=== PATIENT | female | born 1990 | race Caucasian/White ===

== ENCOUNTER → 2017-07-18 | Outpatient (CLI) | payer BC | END | disposition home or self-care (01) | LOC: C.PAPS 10:44 | PROVIDERS: ATTEND Obstetrics & Gynecology | DX: Z01.419 Encounter for gynecological examination (general) (routine) without abnormal findings (principal) ==

== ENCOUNTER 2023-12-22 02:46 | Observation (INO) ==
--- NOTE | 2023-12-22 03:00 | Emergency Department Note ---
Impression & Plan Abnormal vaginal bleeding, Status post laparoscopy-assisted vaginal hysterectomy, Postoperative vaginal bleeding following genitourinary procedure ED Provider Note CHIEF COMPLAINT: Vaginal bleeding HISTORY OF PRESENTING ILLNESS: This 33-year-old female patient returns to the emergency department for continued vaginal bleeding. The patient had a hysterectomy on 11/30/2023 without any problems or concerns. However, earlier this evening the patient started with multiple episodes of a large gush of blood. The patient was seen in the emergency department and [employer] presented to the bedside and used Monsel solution to stop the bleeding and the vaginal canal was packed with 2 sponges soaked in Monsel solution. The patient was discharged home, but developed continued significant bleeding and return to the emergency department. No new or changing symptoms, but the bleeding continues to be heavy. REVIEW OF SYSTEMS: See HPI for pertinent positives and pertinent negatives. ALLERGIES: NKDA MEDICATIONS: Levothyroxine, Trazodone, Rizatriptan prn PAST MEDICAL HISTORY: Hypothyroidism, Sleep disturbance, Migraines. Hysterectomy, CCY, appendectomy, tubal ligation. PHYSICAL EXAM: VITALS: Vitals are noted on the nurse's note and reviewed by myself. GENERAL: Non toxic, no acute distress, non-diaphoretic. SKIN: The patient is slightly paler in complexion compared to her last visit. Capillary refill <2 sec. EYES: PERRLA. EOMI. Conjunctivae without injection, sclerae without icterus. NOSE: Patent without discharge. MOUTH: Mucous membranes moist. Uvula midline. Airway patent. NECK: Supple without nuchal rigidity. HEART: Regular rate and rhythm without murmurs gallops or rubs. LUNGS: Clear to auscultation bilaterally without wheezes, rales or rhonchi. No retractions or accessory muscle use. ABDOMEN: Positive bowel sounds x 4. Normal tympanic percussion. Soft, nontender. No masses or organomegaly. Horn sign negative. No guarding or rebound tenderness. No focal RLQ or LLQ tenderness. PELVIC: Permission to perform the exam. Nurse present for the exam. Only external exam performed due to the packing in place. The patient does have continued oozing of bright red blood as well as some blood clots that are coming out around the packing. However, no hemorrhaging at this time. NEURO: Patient was alert and oriented. No focal neurological deficits. DIFFERENTIAL DIAGNOSIS: Differential diagnosis includes hypermenorrhea, polymenorrhea, , , ectopic , endocrine abnormality, salpingitis, cervicitis, coagulopathy, neoplasm, polyps, ovarian cyst, myoma of uterus, hormonal imbalance, atrophic vaginitis, or others. ED COURSE AND MEDICAL DECISION MAKING: MEDICATIONS GIVEN: 1 L normal saline solution bolus. 1000 mg of TXA IV. MONITOR: Continuous ekg monitor: Order was placed for continuous ekg monitor. Patient was placed on the ekg monitor and continuous pulse ox. Patient was noted to be in normal sinus rhythm at an initial rate of 90 bpm per my interpretation. INTERPRETATION OF LABS: I interpreted the labs with full lab results as below in the lab section of this note. Pertinent lab results discussed in the MDM section below. INTERPRETATION OF IMAGING: Imaging studies were interpreted by myself and read by radiology as per the imaging section of this note. CT scan of the abdomen pelvis with IV contrast showed surgical changes consistent with a hysterectomy. There is complex fluid/blood distending the vaginal cavity. There is small gas foci within the vaginal canal. Nonspecific hyperdense material within the vaginal canal. Punctate nonobstructing left renal stone. No hydronephrosis or obstructing ureteral stone. I spoke with Dr. Ramírez of radiology through [facility] at Dr. Fields's request to confirm that the bleeding was all vaginal and that there was no intra-abdominal bleeding. Dr. Ramírez confirm that there was no intra-abdominal bleeding. CONSULTATIONS: Dr. Fields of [employer]. Dr. Ramírez of radiology through [facility] MDM SUMMARY: I examined the patient. The patient had recently been discharged from the ER for vaginal bleeding after her hysterectomy on 11/30/2023. The patient had Monsel's Solution placed on the area of bleeding and her vaginal canal was packed by Dr. Fields of [employer] [employer]. However, she went home and states that she had continued significant bleeding. I spoke with Dr. Fields of [employer] who recommended repeat CBC and coags as well as IV TXA. She also recommended a CT scan of the abdomen pelvis with IV contrast to evaluate the source of bleeding. An IV lock was placed and labs were drawn. The patient was given 1 L normal saline solution bolus. She was given 1000 mg of TXA IV. She declined any medication for pain while in the emergency department. The patient's white blood cell count slightly increased to 13.8. Her hemoglobin decreased from 12.6-10.8. Hematocrit dropped from 39-32.6. This was prior to any IV fluids. Platelet count was normal at 295. Coagulation studies remained normal. Repeat BMP without significant abnormalities and no significant change in her BUN or creatinine. The patient's blood type was a positive with no antibodies. CT scan of the abdomen pelvis with IV contrast showed surgical changes consistent with a hysterectomy. There is complex fluid/blood distending the vaginal cavity. There is small gas foci within the vaginal canal. Nonspecific hyperdense material within the vaginal canal. Punctate nonobstructing left renal stone. No hydronephrosis or obstructing ureteral stone. I spoke with Dr. Ramírez of radiology through [facility] at Dr. Fields's request to confirm that the bleeding was all vaginal and that there was no intra-abdominal bleeding. Dr. Ramírez confirm that there was no intra-abdominal bleeding. Dr. Fields recommended admission for observation of her continued bleeding. She also presented to the emergency department to reapply Monsel's Solution and perform repeat vaginal packing. Please refer to her dictation for further details. The patient was admitted for observation by Dr. Fields. Please refer to the inpatient admission notes for further details. The patient's care was transferred in stable condition. DIAGNOSIS: Abnormal vaginal bleeding status post hysterectomy on 11/30/2023 Past Med/Surg History Problem List (Updated 12/23/23 @ 19:54 by Bessie Gillette PA-C) Postoperative vaginal bleeding following genitourinary procedure (Acute) Status post laparoscopy-assisted vaginal hysterectomy (Acute) Abnormal vaginal bleeding (Acute) Abdominal pain Medical History History of postoperative nausea and vomiting severe Anxiety Hypothyroidism History of COVID-19 (02/2023) no hosp; resolved History of anemia Surgical History Status post wisdom tooth extraction S/P tubal ligation H/O LEEP H/O laparoscopy diagnostic Status post cholecystectomy laparoscopic with cholangiography >> appendix removed at same time Family History Grandfather (Paternal) Stroke Grandmother Hypertension Grandfather (Paternal) Hypertension Social History Smoking Status: Current every day smoker Tobacco Type: Cigarettes Cigarettes Per Day: 7 sticks per day - Patient advised on smoking cessation.; Second Hand Exposure: Yes; Do You Dip or Chew Tobacco: No; Tobacco Cessation Education Requested by Patient: Yes Hx Alcohol Use: No Hx Substance Use: Yes Last Used Substance: Unknown Substance Use Type Other:: Patient has legal card for marijuana. Preferred Language: Belarusian Communication Ability: Effective Header Machine Operator Required: No Beliefs That Will Affect Care: None Current Living Situation: Alone Feels Safe at Home: Yes Safety Concerns: Feels Safe At This Time Assistive Devices: None Allergies Allergies Allergy/AdvReac Type Severity Reaction Status Date / Time No Known Allergies Allergy Verified 11/30/23 08:50 Home Meds Home Medications Medication Instructions Recorded Confirmed levothyroxine 25 mcg tablet 25 mcg PO QAM 07/01/23 12/22/23 rizatriptan 10 mg tablet 10 mg PO DIRECTED PRN Migraine 07/01/23 12/22/23 Headache trazodone 100 mg tablet 100 mg PO HS 07/01/23 12/22/23 Results & Data (ED) Laboratory Data 12/23/23 12:23 12/22/23 04:16 Lab Results 12/22/23 Range/Units 04:16 WBC 13.88 H (4.8-10.8) K/ul RBC 3.65 L (4.20-5.40) M/uL Hgb 10.8 L (12.0-16.0) g/dl Hct 32.6 L (37.0-47.0) % MCV 89.3 (80.0-100.0) fL MCH 29.6 (25.0-34.0) pg MCHC 33.1 (32.0-36.0) g/dL RDW Std Deviation 41.2 (36.4-46.3) fL RDW Coeff of Ray 12.7 (11.5-14.5) % Plt Count 295 (130-400) K/uL MPV 10.5 (9.4-12.4) fL Immature Gran % (Auto) 0.4 % Neut % (Auto) 75.3 % Lymph % (Auto) 16.9 % [place] % (Auto) 5.7 % Eos % (Auto) 1.4 % Baso % (Auto) 0.3 % Neut # (Auto) 10.45 H (1.40-6.50) K/uL Lymph # (Auto) 2.35 (1.20-3.40) K/uL [place] # (Auto) 0.79 H (0.11-0.59) K/uL Eos # (Auto) 0.20 (0.00-0.50) K/uL Baso # (Auto) 0.04 (0.00-0.20) K/uL Immature Gran # (Auto) 0.05 (0.01-0.20) K/uL PT 10.2 (9.0-12.0) Seconds INR 0.9 (0.9-1.1) APTT 25 (21-31) Seconds PTT Ratio 0.9 Sodium 139 (136-145) mmol/L Potassium 3.8 (3.5-5.1) mmol/L Chloride 111 H (98-107) mmol/L Carbon Dioxide 21 (21-32) mmol/L Anion Gap 7 (3-11) BUN 11 (6-23) mg/dl Creatinine 0.71 (0.6-1.2) mg/dl Est Cr Clr Drug Dosing Not Reportable eGFR 115.06 BUN/Creatinine Ratio 15.5 (10-20) Glucose 83 (70-99(Fasting)) mg/dl Calcium 8.5 L (8.6-10.3) mg/dl Administered Medications Discontinued Medications Acetaminophen (Acetaminophen 325 Mg Tab) 650 mg PO Q4H PRN PRN Reason: Pain or Fever Stop: 01/21/24 07:18 Last Admin: 12/22/23 19:29 Dose: 650 mg Documented By: HLB Co-signed By: SRF Ferric Subsulfate (Ferric Subsulfate 8 Ml Vial) 8 ml TOP NOW STA Stop: 12/22/23 05:07 Last Admin: 12/22/23 07:53 Dose: 8 ml Documented By: JACINTA Sodium Chloride (Nss) 1,000 mls @ 999 mls/hr IV .Q1H1M STA Stop: 12/22/23 04:07 Last Infusion: 12/22/23 05:07 Dose: Infused Documented By: Admin: 12/22/23 03:58 Dose: 999 mls/hr Documented By: TERRY Tranexamic Acid (Tranexamic Acid / 0.7% Nacl) 1,000 mg in 100 mls @ 600 mls/hr IV NOW STA Stop: 12/22/23 03:19 Last Infusion: 12/22/23 04:06 Dose: Infused Documented By: Admin: 12/22/23 03:56 Dose: 600 mls/hr Documented By: TERRY Ioversol (Optiray 320 100ml) 94 ml IV ONCE ONE Stop: 12/22/23 03:51 Last Admin: 12/22/23 03:47 Dose: 94 ml Documented By: URI Levothyroxine Sodium (Levothyroxine Sodium 25 Mcg Tablet) 25 mcg PO DAILYBB VENECIA Stop: 01/21/24 09:59 Last Admin: 12/23/23 06:32 Dose: 25 mcg Documented By: Admin: 12/22/23 10:54 Dose: 25 mcg Documented By: DEISY Trazodone HCl (Trazodone Hcl 100 Mg Tab) 100 mg PO HS VENECIA Stop: 01/21/24 20:59 Last Admin: 12/22/23 22:12 Dose: 100 mg Documented By: GAEL Discharge Plan Visit Data Chief Complaint: Vaginal Bleeding Stated Complaint: VAG BLEED EXTREME ED Provider: Vanessa Dickerson ED Midlevel Provider: Bessie Gillette Discharge Problem: Abnormal vaginal bleeding, Status post laparoscopy-assisted vaginal hysterectomy, Postoperative vaginal bleeding following genitourinary procedure Patient Disposition: Admitted As Inpatient Condition: Good Discharge Instructions Interventions: ED Discharge Assessment Last Done: 12/22/23 09:30
[2023-12-22] MEDS: OPTIRAY 320 100ml IV ONE (03:47)
[2023-12-22] MEDS: TRANEXAMIC ACID / 0.7% NACL 1,000 MG/100 ML BAG IV STA (03:56)
[2023-12-22] MEDS: SODIUM CHLORIDE 0.9% 1,000 ML IV STA (03:58)
--- NOTE | 2023-12-22 04:17 | CT Scan Report ---
Exam(s): CT ABDOMEN + PELVIS With Contrast IV Amt: 94 ml EXAM: CT Abdomen and Pelvis With Intravenous Contrast CLINICAL HISTORY: Reason for exam: Vaginal bleeding, abdominal pain, recent hysterect. TECHNIQUE: Axial computed tomography images of the abdomen and pelvis with intravenous contrast. CTDI is 25.14 mGy and DLP is 1302.27 mGy-cm. Automated exposure control was utilized for the study. A dose lowering technique was utilized adhering to the principles of ALARA. CONTRAST: Patient received 94 ml of IV contrast COMPARISON: CT abdomen/pelvis on 08/16/2017 FINDINGS: Lung bases: Unremarkable. No mass. No consolidation. ABDOMEN: Liver: Unremarkable. No mass. Gallbladder and bile ducts: Prior cholecystectomy. No ductal dilation. Pancreas: Unremarkable. No mass. No ductal dilation. Spleen: Small splenule. Adrenals: Unremarkable. No mass. Kidneys and ureters: Punctate nonobstructing left renal stone. No hydronephrosis or obstructing ureteral stone. Small hypodensity in the right kidney is too small to definitively characterize. Stomach and bowel: Diverticulosis without evidence of diverticulitis. No small bowel obstruction. PELVIS: Appendix: Prior appendectomy. Bladder: Unremarkable. No mass. Reproductive: Hysterectomy. Complex fluid/blood distending the vaginal cavity. Small gas foci within the vaginal cavity. Nonspecific hyperdense material within the vaginal cavity. Please correlate clinically. ABDOMEN and PELVIS: Intraperitoneal space: Unremarkable. No free air. No significant fluid collection. Bones/joints: No acute fracture. No dislocation. Soft tissues: Small fat-containing periumbilical hernia. Vasculature: Unremarkable. No abdominal aortic aneurysm. Lymph nodes: Unremarkable. No enlarged lymph nodes. IMPRESSION: 1. Hysterectomy. Complex fluid/blood distending the vaginal cavity. Small gas foci within the vaginal cavity. Nonspecific hyperdense material within the vaginal cavity. Please correlate clinically. 2. Punctate nonobstructing left renal stone. No hydronephrosis or obstructing ureteral stone. Electronically signed by: Nemo Ramírez M.D. 12/22/23 04:16 AM
[2023-12-22 04:32] LABS: Basophils # (auto) 0.04 K/uL (0.00-0.20); Basophils % (auto) 0.3 %; Eosinophils % (auto) 1.4 %; Hematocrit (blood only) 32.6 % (37.0-47.0); Hemoglobin 10.8 g/dl (12.0-16.0); Immature Granulocytes # (auto) 0.05 K/uL (0.01-0.20); Immature Granulocytes % (auto) 0.4 %; Lymphocytes # (auto) 2.35 K/uL (1.20-3.40); Lymphocytes % (auto) 16.9 %; Mean Corpuscular Hemoglobin 29.6 pg (25.0-34.0); Mean Corpuscular Hgb Conc 33.1 g/dL (32.0-36.0); Mean Corpuscular Volume 89.3 fL (80.0-100.0); Mean Platelet Volume 10.5 fL (9.4-12.4); Monocytes # (auto) 0.79 K/uL (0.11-0.59); Monocytes % (auto) 5.7 %; Neutrophils # (auto) 10.45 K/uL (1.40-6.50); Neutrophils % (auto) 75.3 %; Platelet Count 295 K/uL (130-400); RDW Coefficient of Variation 12.7 % (11.5-14.5); RDW Standard Deviation 41.2 fL (36.4-46.3); Red Blood Count 3.65 M/uL (4.20-5.40); White Blood Count 13.88 K/ul (4.8-10.8)
[2023-12-22 04:47] LABS: Anion Gap 7 (3-11); Calcium 8.5 mg/dl (8.6-10.3); Carbon Dioxide 21 mmol/L (21-32); Chloride 111 mmol/L (98-107); Potassium 3.8 mmol/L (3.5-5.1); Sodium 139 mmol/L (136-145)
[2023-12-22 04:53] LABS: BUN Creatinine Ratio 15.5 (10-20); Blood Urea Nitrogen 11 mg/dl (6-23); Glucose 83 mg/dl (70-99(Fasting))
[2023-12-22 05:14] LABS: INR 0.9 (0.9-1.1); Partial Thromboplastin Ratio 0.9; Partial Thromboplastin Time 25 Seconds (21-31); Prothrombin Time 10.2 Seconds (9.0-12.0)
[2023-12-22] MEDS ORDERED: POLYETHYLENE (MIRALAX) 17 GM PACK PO PRN (07:19)
--- NOTE | 2023-12-22 07:42 | Gynecologic Progress Note ---
Date of Service December 22, 2023 Subjective Patient came back bleeding thorough 2 sponges placed earlier H&H stable CT is negative for fluid in pelvis All seen in vagina VSS Afebrile Patient denies pain VE; the sponges were removed. It was completely soaked with blood. Speculum exam showed small dark cloths in upper vagina, cleaned, cuff looks intact. Applied Monsels solution, packed with vaginal packing Smith catheter is placed to drain bladder Patient to be takne to [facility] floor for observation today Repeat CBC Continue to monitor closely Results & Data Vital Signs (Past 12 Hours) Vital Signs Resp BP Pulse Ox O2 Del Method 12/22/23 04:00 18 135/83 99 Room Air
[2023-12-22] MEDS ORDERED: oxyCODONE HCL IR 5 MG TAB (IMMEDIATE RELEASE) PO PRN (07:43)
[2023-12-22] MEDS: FERRIC SUBSULFATE 8 ML VIAL TOP STA (07:53)
[2023-12-22 09:16] LABS: Basophils # (auto) 0.03 K/uL (0.00-0.20); Basophils % (auto) 0.2 %; Eosinophils # (auto) 0.23 K/uL (0.00-0.50); Eosinophils % (auto) 1.8 %; Hematocrit (blood only) 30.9 % (37.0-47.0); Hemoglobin 9.8 g/dl (12.0-16.0); Immature Granulocytes # (auto) 0.04 K/uL (0.01-0.20); Immature Granulocytes % (auto) 0.3 %; Lymphocytes # (auto) 2.85 K/uL (1.20-3.40); Lymphocytes % (auto) 22.3 %; Mean Corpuscular Hemoglobin 29.3 pg (25.0-34.0); Mean Corpuscular Hgb Conc 31.7 g/dL (32.0-36.0); Mean Corpuscular Volume 92.2 fL (80.0-100.0); Mean Platelet Volume 10.3 fL (9.4-12.4); Monocytes # (auto) 0.76 K/uL (0.11-0.59); Monocytes % (auto) 5.9 %; Neutrophils # (auto) 8.89 K/uL (1.40-6.50); Neutrophils % (auto) 69.5 %; Platelet Count 339 K/uL (130-400); RDW Standard Deviation 42.9 fL (36.4-46.3); Red Blood Count 3.35 M/uL (4.20-5.40)
[2023-12-22] MEDS ORDERED: RIZATRIPTAN BENZOATE 10 MG TAB PO PRN (09:49)
[2023-12-22] MEDS: LEVOTHYROXINE SODIUM 25 MCG TABLET PO SCH (10:54)
[2023-12-22] MEDS: ACETAMINOPHEN 325 MG TAB PO PRN (19:29)
[2023-12-22] MEDS: traZODone HCL 100 MG TAB PO SCH (22:12)
--- NOTE | 2023-12-23 12:10 | Obstetrical Progress Note ---
Date of Service December 23, 2023 Assessment & Plan Admission and Anticipated Discharge Date Admission Date: December 22, 2023 Subjective vaginal packing removed no active bleeding noted hg 9.8 Results & Data Vital Signs (Past 12 Hours) Vital Signs Temp Pulse Pulse Resp BP Pulse Ox O2 Del Method 12/23/23 09:20 36.8 C 88 18 111/66 98 Room Air 12/23/23 03:12 36.7 C 82 18 95/65 L 98 Room Air
[2023-12-23 12:54] LABS: Hematocrit (blood only) 34.9 % (37.0-47.0); Hemoglobin 11.5 g/dl (12.0-16.0)
== END 2023-12-23 14:00 | disposition home or self-care (01) ==
LOC: ED 02:46 → 4E1 02:46
DX: N93.9 Abnormal uterine and vaginal bleeding, unspecified

== ENCOUNTER 2023-12-29 14:02 | Inpatient (IN) ==
--- OUTSIDE RECORDS SUMMARY | 2023-12-29 14:06 | External Medical Summary | Summary of Care ---
Author Name Unknown Organization [facility] Address [address] [facility] [facility] [place] [address] Phone [phone] Care Team Providers Care Datastage Architect Name Role Phone Louis Hoang MD Primary Care Provide r Reason for Visit * Reason Comments General Engineer Return Encounter Details Date Type Department Care Team (Latest Contact Info) Description 12/28/2023 12:15 PM EDT Office Visit Gynecology/Obstetric jj Wagnerana Maes [address] [place] [id number] Dov Le MD [address] [place] [phone] Postoperative vaginal bleeding following genitourinary procedure* Allergies No known active allergiesdocumented as of this encounter (statuses as of 12/28/2023) Medications Medication Sig Dispensed Refills Start Date End Date Status traZODone HCl 100 MG Oral Tablet (Desyrel)Indicati ons:ANTONINA (generalized anxiety disorder) One tablet at bedtime 30 Tablet 5 05/03/2023 Active Levothyroxine Sodium 25 MCG Oral Tablet (Levoxyl)Indicati ons:Hypothyroidis m, unspecified type Take 1 Tablet by mouth in the morning. (at least 30 min prior to breakfast or other meds). 30 Tablet 11 06/26/2023 Active Rizatriptan Benzoate 10 MG Oral Tablet DisintegratingInd ications:Migraine with aura and without status migrainosus, not intractable DISSOLVE 1 TABLET UNDER THE TONGUE NEEDED FOR MIGRAINE, MAY REPEAT IN TWO HOURS if NEEDED 10 Tablet 1 12/05/2023 Active Propranolol HCl ER 80 MG Oral Capsule Extended Release 24 Hour (Inderal LA)Indications:In tractable migraine with aura without status migrainosus Take 1 Capsule by mouth in the morning. 30 Capsule 5 05/03/2023 12/28/2023 Discontinue d(Medicatio n List Clean Up) Ibuprofen 600 MG Oral Tablet (Motrin) Take 1 Tablet by mouth every 6 hours as needed (pain). With food. 30 Tablet 1 11/07/2023 12/28/2023 Discontinue d(Medicatio n List Clean Up) Acetaminophen 325 MG Oral Tablet (Tylenol) Take 2 Tablets by mouth every 6 hours as needed for Pain, Moderate. 30 Tablet 1 11/07/2023 12/28/2023 Discontinue d(Medicatio n List Clean Up) Docusate Sodium 100 MG Oral Capsule (Colace) Take 1 Capsule by mouth in the morning and 1 Capsule before bedtime. 60 Capsule 1 11/07/2023 12/28/2023 Discontinue d(Medicatio n List Clean Up) Simethicone 80 MG Oral Tablet Chewable (Mylicon) Take 1 Tablet by mouth every 6 hours as needed for Gas. 30 Tablet 11/07/2023 12/28/2023 Discontinue d(Medicatio n List Clean Up) oxyCODONE-Acetami nophen 5-325 MG Oral Tablet (Percocet) Take 1 Tablet by mouth every 4 hours as needed for Pain, Severe. 10 Tablet 11/07/2023 12/28/2023 Discontinue d(Medicatio n List Clean Up) documented as of this encounter (statuses as of 12/28/2023) Active Problems Problem Noted Date Diagnosed Date Abnormal thyroid function test 06/21/2023 Overview: Component Latest Ref Rng 06/20/2023 TSH 0.27 - 4.20 uIU/mL 5.43 (H) T4, Free 0.9 - 1.7 ng/dL 0.9 Legend: (H) High Keratosis pilaris 02/17/2021 ANTONINA (generalized anxiety disorder) 09/19/2016 Migraine with aura and witho ut status migrainosus, not intractable documented as of this encounter (statuses as of 12/28/2023) Immunizations Name Administration Dates Next Due COVID-19 mRNA, LNP-s, No Pre serve, 2-Dose Series (Pfizer) 01/11/2021,12/21/2020 DTWP - Dipth/Tet/Whole Cell Pertussis 10/29/1991 ,05/15/1991,01/08/1991 DTWP HIB - Dipth/Tet/Whole C ell Pert/HIB 10/31/1996,04/12/1992 H1N1 2009 Influenza, Intranasal 01/18/2009 HIB PRP-T, 4 Dose, PF, IM (H iberix, ActHib) 04/12/1992,10/29/1991,05/15/1991,01/08 HPV Vaccine, 4-Valent 04/10/2007,11/12/2006,09/02 Hepatitis B, 0-19 yrs 07/05/1993,06/28/1992,10/1992 MMR - Measles/Mumps/Rubella Vaccine 10/31/1996,0 04/12/1992 Meningococcal Conjugate Vacc ine (Menactra/Menveo) 04/10/2007 OPV - Polio Virus Vaccine (Oral) 997,04/12/1992,05/15/1991,01/08 Pneumococcal Conjugate Vacci ne, 20-valent ([id number]) 04/19/2022 Pneumococcal Polysaccharide PPV23 (Pneumovax) 04/04/2010 Seasonal Influenza Vac., MDV , IM, 0.5 mL (Fluzone) 04/04/2010,01/13/2008 Seasonal Influenza, PF, 6 M & above, IM , (FluLaval or Fluzone) 05/03/2023,04/19/2022,01/12/2020,02/19,02/07/2018 TDAP, Age 7 and older, IM (Adacel) 08/03/2014, Varicella Vaccine (Chicken Pox) 10/23/2008,07/25 documented as of this encounter Social History Tobacco Use Types Packs/Day Years Used Date Smoking Tobacco: Some Days Cigarettes 0.5 15.1 Started: 2008 Smokeless Tobacco: Never Alcohol Use Standard Drinks/Week Comments No 0 (1 standard drink = 0.6 oz pur e alcohol) PHQ-2 Answer Date Recorded PHQ-2 Score 1 10/27/2019 Hunger Vital Sign Answer Date Recorded Within the past 12 months, y ou worried that your food would run out before you got the money to buy more. Never true 06/19/19 24 Within the past 12 months, t he food you bought just didn't last and you didn't have money to get more. Never true 06/19/2023 Childcare Answer Date Recorded Do you feel overwhelmed with taking care of a child, family member or friend? No 06/19/2023 Does your family need help f inding childcare? (Household - for ages 0-17 years) Not on file 06/19/2023 Clothing Answer Date Recorded Have you been unable to get clothing when it was really needed? No 06/19/2023 Is your family able to get c lothes or diapers when needed? (Household - for ages 0-17 years) Not on file 06/19/2023 Personal Safety Answer Date Recorded Do you feel unsafe or have concerns for your saf ety? No 06/19/2023 Do you have concerns for you r family's safety? (Household - for ages 0-17 years) Not on file 06/19/2023 Utilities Answer Date Recorded Do you have trouble paying y our heating, water, or electric bill? No 06/19/2023 Is your family able to pay t he heat, water, or electric bill? (Household - for ages 0-17 years) Not on file 06/19/2023 Does your family have access to good internet? (Household - for ages 0-17 years) Not on file 06/19/2023 Employment Status Answer Date Recorded Are you unemployed or without regular income? No 06/19/2023 Does the household have a re gular source of income? (Household - for ages 0-17 years) Not on file 06/19/2023 Social Connections Answer Date Recorded How often do you feel lonely or isolated from th ose around you? Never 06/19/2023 Financial Resource Strain Answer Date R ecorded Do you have any trouble payi ng for your medications, or do you think you might in the future? No 06/19/2023 Does your family have troubl e paying for medicine? (Household - for ages 0-17 years) Not on file 06/19/2023 Transportation Needs Answer Date Record ed READ ONLY Do you have troubl e getting a ride to medical visits or work? Never True 06/19/2023 Does your family have a hard time getting a ride to doctors visits? (Household - for ages 0-17 years) Not on file 06/19/2023 Has lack of transportation k ept you from medical appointments, meetings, work, or from getting things needed for daily living? Check all that apply. (Adult - for ages 18 years and over) Not on file 06/19/2023 Do you (or your family) have trouble finding or paying for a ride (transportation)? (Household - for ages 0-17 years) Not on file 06/19/2023 Housing Stability Answer Date Recorded Do you currently live in a s helter or have no steady place to sleep at night? No 06/19/2023 READ ONLY Do you think you a re at risk of becoming homeless? No 06/19/2023 Does your family worry about paying for your home or becoming homeless? (Household - for ages 0-17 years) Not on file 0 06/19/2023 Are you homeless or worried that you might be in the future? (Adult - for ages 18 years and over) Not on file Are you (or your family) jovan eless or worried that you might be in the future? (Household - for ages 0-17 years) Not on file Food Insecurity Answer Date Recorded Do you need food for this week? No 06/19/2023 Are you able to get enough f ood for your family? (Household - for ages 0-17 years) Not on file 06/19/2023 Does your family need food t his week? (Household - for ages 0-17 years) Not on file 06/19/2023 Do you always have enough fo od for your family? (Household - for ages 0-17 years) Not on file 06/19/2023 Sex and Gender Information Value Date Recorded Sex Assigned at Female 06/19/2023 1:45 PM EDT Gender Identity Female 06/19/2023 1:45 PM EDT Sexual Orientation Straight 06/19/2023 1: 45 PM EDT Job Start Date Occupation Industry Not on file Not on file Not on file documented as of this encounter Last Filed Vital Signs Vital Sign Reading Time Taken Comments Blood Pressure 128/74 12/28/2023 12:39 PM EDT Pulse - - Temperature - - Respiratory Rate - - Oxygen Saturation - - Inhaled Oxygen Concentration - - Weight 81.1 kg (178 lb 12.8 oz) 024 12:39 PM EDT Height - - Body Mass Index 28.86 12/19/2023 12:43 PM EDT documented in this encounter Progress Notes * Dov Le MD - 12/28/2023 1:03 PM EDT Subjective Jf Flood is a 33 year old female. Chief Complaint Patient presents with General Engineer Return Patient is seen for postoperative bleeding HPI: Patient is a 2 para 2 underwent laparoscopic hysterectomy 11/30/2023. Was admitted to [facility] for a postoperative bleed 12/22/2023. At that time she underwent treatment of the vaginal cuff with Monsel's solution and vaginal packing. First attempt at controlling the bleeding was unsuccessful. She had a return to the hospital where she underwent Monsel's solution large amount of vaginal packing and an insertion of the Smith catheter. She was observed over night. The following day packing was removed revealing minimal amount of bleeding. Along with a Smith catheter. Hemoglobinwas checked prior to discharge was found to be over 11. She called the day of admission stating she had recurrence of vaginal bleeding which she described as being small amount. Patient was instructed to return to the office to be checked.. PMH: Patient Active Problem List Diagnosis ANTONINA (generalized anxiety disorder) Migraine with aura and without status migrainosus, not intractable Keratosis pilaris Abnormal thyroid function test Current Outpatient Medications Medication Sig Dispense Refill traZODone HCl 100 MG Oral Tablet (Desyrel) One tablet at bedtime 30 Tablet 5 Levothyroxine Sodium 25 MCG Oral Tablet (Levoxyl) Take 1 Tablet by mouth in the morning. (at least 30 min prior to breakfast or other meds). 30 Tablet 11 Rizatriptan Benzoate 10 MG Oral Tablet Disintegrating DISSOLVE 1 TABLET UNDER THE TONGUE NEEDED FOR MIGRAINE, MAY REPEAT IN TWO HOURS if NEEDED 10 Tablet 1 No current facility-administered medications for this visit. Review of patient's allergies indicates: No Known Allergies Objective BP 128/74 | Wt 81.1 kg (178 lb 12.8 oz) | LMP 11/06/2023 | BMI 28.86 kg/m | BSA 1.94 m Patient was well-nourished female alert oriented x3 in no acute distress. Pelvic exam revealed small amount of dark clots emanating from the vaginal cuff. A small area of red tissue on the left side of the cuff. Removed the clots with a ring forceps. And use Monsel's solution on the cuff to control any future bleeding. Should be noted at the time of the exam there was noactive bleeding noted. Breakfast Bar Attendant Lauren ASSESSMENT/PLAN: Patient will return next week There are no diagnoses linked to this encounter. Dov Le MD documented in this encounter Plan of Treatment Upcoming Encounters Date Type Department Care Team (Late st Contact Info) Description 01/01/2024 12:00 PM EDT Office Visit Gynecology/Obstetrics [facility] [address] [place] [id number] Dov Le MD [address] [place] [phone] 02/13/2024 1:45 PM EST Office Visit Gynecology/Obstetrics [facility] [address] [place] [id number] Haylee Stiles MD [address] [place] [id number] Health Maintenance Due Date Last Done Comments Hepatitis C Screening 2008 Depression Screening 10/20/2020 10/21/2019 COVID-19 Vaccine (3 - 2023-2 5 season) 2023 01/11/2021, 12/21/2020 Influenza Vaccine (FLU shot) (#1) 2023 05/03/2023, 04/19/2022, 01/12/2020, Additional history exists DTap/Tdap Vaccines (8 - Td o r Tdap) 08/03/2024 08/03/2014, 04/10/2007, 10/31/1996, Additional history exists TSH 08/06/2024 08/07/2023, 06/03, 10/31/2019, Additional history exists Hepatitis B Vaccine Completed 07/05/1993, 06/28/1992, 04/12/1992 HPV (Gardasil) Vaccine Completed 8, 11/12/2006, 09/13/2006 MENINGOCOCCAL (MENACTRA/MENVEO) Completed 8, 04/10/2007 Pneumococcal Vaccine: Pediat rics (0 to 5 Years) and At-Risk Patients (6 to 64 Years) Completed 04/19/2022, 04/04/2010 Cervical Cancer Screening Discontinued HPV/Co-Test Discontinued 06/20/2023 Pap Smear Discontinued 06/20/2023, 08/04, 07/18/2017 documented as of this encounter Medical Devices Not on filedocumented as of this encounter Visit Diagnoses Diagnosis Postoperative vaginal bleeding following genitourinary procedure- Primary documented in this encounter Care Teams Datastage Architect Relationship Specialty Start Date End Date Louis Hoang MD [address] [place] [address] [place] [id number] PCP - General Family Medicine 05/03/23 documented as of this encounter"
[2023-12-29] MEDS: SODIUM CHLORIDE 0.9% 1,000 ML IV ONE ×2 (15:24→16:35)
[2023-12-29 15:30] LABS: Basophils # (auto) 0.04 K/uL (0.00-0.20); Basophils % (auto) 0.4 %; Eosinophils # (auto) 0.22 K/uL (0.00-0.50); Eosinophils % (auto) 1.9 %; Hematocrit (blood only) 35.1 % (37.0-47.0); Hemoglobin 11.5 g/dl (12.0-16.0); Immature Granulocytes # (auto) 0.03 K/uL (0.01-0.20); Immature Granulocytes % (auto) 0.3 %; Lymphocytes # (auto) 2.45 K/uL (1.20-3.40); Lymphocytes % (auto) 21.7 %; Mean Corpuscular Hemoglobin 30.2 pg (25.0-34.0); Mean Corpuscular Hgb Conc 32.8 g/dL (32.0-36.0); Mean Corpuscular Volume 92.1 fL (80.0-100.0); Mean Platelet Volume 10.1 fL (9.4-12.4); Monocytes # (auto) 0.62 K/uL (0.11-0.59); Monocytes % (auto) 5.5 %; Neutrophils # (auto) 7.95 K/uL (1.40-6.50); Neutrophils % (auto) 70.2 %; Platelet Count 459 K/uL (130-400); RDW Coefficient of Variation 13.5 % (11.5-14.5); RDW Standard Deviation 44.7 fL (36.4-46.3); Red Blood Count 3.81 M/uL (4.20-5.40); White Blood Count 11.31 K/ul (4.8-10.8)
[2023-12-29 15:42] LABS: Albumin Globulin Ratio 1.5 (0.9-2); Albumin Level 4.8 gm/dl (3.4-5.0); BUN Creatinine Ratio 14.6 (10-20); Bilirubin,Total 0.3 mg/dl (0.2-1.0); Calcium 9.6 mg/dl (8.6-10.3); Creatinine Clr Calc Pharmacy 104.1 ml/min; Globulin 3.2 gm/dl (2.5-4.0); Potassium 3.9 mmol/L (3.5-5.1)
[2023-12-29 15:46] LABS: INR 0.9 (0.9-1.1); Prothrombin Time 10.3 Seconds (9.0-12.0)
[2023-12-29 15:57] LABS: Thyroid Stimulating Hormone 7.106 uIu/ml (0.300-4.500)
--- NOTE | 2023-12-29 16:02 | Emergency Department Note ---
Impression & Plan Abnormal vaginal bleeding, Status post laparoscopy-assisted vaginal hysterectomy, Hypotension ED Provider Note ED Provider Note NAME: FELTON BAILEY AGE:33 SEX: Female : 1990 ARRIVES VIA: Private vehicle INFORMANT: Patient ED PROVIDER(s): Thu Ramos DO CHIEF COMPLAINT: Vaginal bleeding HPI: This is a 33-year-old female who presents emergency department due to concern for vaginal bleeding. Patient is status post laparoscopic hysterectomy the end of November. She developed some vaginal bleeding last weekend and was seen and evaluated in the ER and underwent packing and placement of a Smith. She followed up in the office and the Smith was removed and the bleeding seemed to have subsided. Yesterday she began to have bleeding again and went back to the [employer] CH[employer] DEVELOP[employer]NAGER office and had more packing placed and was scheduled to follow-up on Sunday however today she began to suddenly bleed heavily again with passage of golf ball sized clots. She does have a sense of abdominal pressure and fatigue. She denies chest pain or shortness of breath, fevers or chills, nausea or vomiting. By time of arrival here, patient felt as though she was passing a large clot again. She was noted to be tachycardic and hypotensive on my initial exam. PAST MEDICAL HISTORY:See Below PAST SURGICAL HISTORY:See Below FAMILY HISTORY:See Below SOCIAL HISTORY:See Below HOME MEDICATIONS:See Below ALLERGIES:See Below VITALS:See Below PHYSICAL EXAMINATION: GENERAL: alert, well appearing, well nourished, no distress, non-toxic EYE EXAM: normal conjunctiva, PERRL and EOM's grossly intact OROPHARYNX: no exudate, no erythema, lips, buccal mucosa, and tongue normal and mucous membranes are moist NECK: supple, no nuchal rigidity, no adenopathy, non-tender LUNGS: Clear to auscultation. Normal chest wall mechanics, no w/r/r HEART: no murmurs, S1 normal and S2 normal ABDOMEN: abdomen soft, non-tender, normo-active bowel sounds, no masses, no rebound or guarding. : Normal external genitalia, large clot approximately the size of a fist noted exiting the vaginal vault, slow bright red bleeding noted surrounding this SKIN: no rashes, petechiae, orbruising, pallor noted UPPER EXTREMITIES: upper extremities are grossly normal. FROM, nml pulses b/l. LOWER EXTREMITIES: No pitting edema. FROM, nml pulses b/l. NEURO EXAM: Normal sensorium, cranial nerves II-XII grossly intact, normal speech, no facial droop,nogross weakness of arms, no gross weakness of legs. Gross sensation intact. No ataxia. Vital Signs: reviewed and remarkable Differential Diagnosis: Postop complication, postop infection, vaginal cuff bleeding, ruptured vaginal cuff, trauma, coagulopathy, as well as others were considered MEDICAL DECISION MAKING: This is a 33-year-old female who presents emerged department due to concern for recurrent vaginal bleeding. Patient with recent bleeding 1 month postop from a hysterectomy. She does not use any antiplatelet or anticoagulation medication. She has no known bleeding dyscrasia. Patient noted to have seen SUPPLY CH[employer] DEVELOPMENT MANAGER recently and did undergo treatment with Monsel's and vaginal packing. Patient noted to be hypotensive on arrival here. Labs drawn and sent, IV established, patient monitored on telemetry. She was given 1L IVF. During my exam a large clot noted to be exiting the vagina, and immediately contacted [employer] CH[employer] DEVELOPMENT MANAGER on-call upon exiting the room. A repeat [id number] BMP was added to recheck the H&H after passage of this large clot. Patient then became unresponsive, hypotensive, and tachycardic when nursing staff tried to briefly set her up to reposition her. I was urgently called to the room where she was unresponsive with systolic blood pressure in the 50s, still having ongoing passage of large clots in vaginal bleeding. Dr. Fields was at bedside and began making plans to take the patient to the operating room. Patient's blood pressure improved with additional IV fluids and blood pressure began to be improved. Repeat POC BMP added and revealed a Hgb 5. Packed red cells were obtained and transfusion started at bedside. Patient regained consciousness, blood pressure improved, and she was able to sign blood consent. First unit of blood was transfused and a second unit called for as patient still mildly hypotensive with systolics in the 90s. No further episodes of syncope or decreased responsiveness. Patient remained afebrile. She continued passing clots at bedside and was taken by SUP[employer] CH[employer] DEVELOPMENT MANAGER to the OR. Consultation(s): 1615: Dr. Fields at bedside evaluating the patient. I performed a bedside FAST exam with her in the room to view the abdomen for any free fluid. ER Treatment Provided: See below 1632: I was called urgently to the patient's room as she became hypotensive and unresponsive. A second bag of IV fluids started and a second IV started. We did mix up push dose pressors at bedside however patient's blood pressure improved and she regained consciousness. We did not have to use this. Plan right now per Dr. Fields to take the patient to the operating room. Patient previously had a type and screen, I did ask the charge nurse to call the blood bank to send blood up. Patient did sign the blood consent upon improved mentation and verbalized understanding. 1650: Repeat hemoglobin dropped to 5. One unit of PRBCs being transfused currently. SUP[employer] CH[employer] DEVELOPMENT MANAGER at bedside. Blood pressure improved following a second liter of IV fluids. Consent form signed at bedside. Second unit called for. SUP[employer] CH[employer] DEVELOPMENT MANAGER states their plan is to take her to the operating room. 1708: Patient finished first unit of packed red cells, second unit at bedside to be hung. Blood pressure and heart rate improved. Diagnostics Interpreted By Me: -Cardiac Monitoring: An order was placed for continuous cardiac monitoring. The monitor shows a rate of 118 with sinus tachycardia rhythm. -Laboratory studies: As stated above and show below. Triage Nursing Note Reviewed Prior/Outside Records Reviewed Critical Care: Critical care of 62 min performed to assess and manage high likelihood of life-threatening hypotension, involving labs and imaging performed with assessment to evaluate abnormal vaginal bleeding diagnosis with frequent reassessment. This time includes bedside time, treatment discussions with patient/family/consultants, documentation time and excludes procedure time. Past Med/Surg History Problem List (Updated 12/29/23 @ 22:07 by Thu Ramos DO) Hypotension (Acute) Acute hemorrhage Postoperative vaginal bleeding following genitourinary procedure (Acute) Status post laparoscopy-assisted vaginal hysterectomy (Acute) Abnormal vaginal bleeding (Acute) Abdominal pain Medical History History of postoperative nausea and vomiting severe Anxiety Hypothyroidism History of COVID-19 (02/2023) no hosp; resolved History of anemia Surgical History Status post wisdom tooth extraction S/P tubal ligation H/O LEEP H/O laparoscopy diagnostic Status post cholecystectomy laparoscopic with cholangiography >> appendix removed at same time Family History Grandfather (Paternal) Stroke Grandmother Hypertension Grandfather (Paternal) Hypertension Social History Smoking Status: Current every day smoker Tobacco Type: Cigarettes Cigarettes Per Day: 6 for 13 years; Second Hand Exposure: Yes; Do You Dip or Chew Tobacco: No; Hx Alcohol Use: No Hx Substance Use: No Preferred Language: [place] Communication Ability: Effective [employer] Required: No Beliefs That Will Affect Care: None Current Living Situation: Significant Other Feels Safe at Home: Yes Safety Concerns: Feels Safe At This Time Assistive Devices: None Allergies Allergies Allergy/AdvReac Type Severity Reaction Status Date / Time No Known Allergies Allergy Verified 11/30/23 08:50 Home Meds Home Medications Medication Instructions Recorded Confirmed levothyroxine 25 mcg tablet 25 mcg PO QAM 07/01/23 12/22/23 rizatriptan 10 mg tablet 10 mg PO DIRECTED PRN Migraine 07/01/23 12/22/23 Headache trazodone 100 mg tablet 100 mg PO HS 07/01/23 12/22/23 Results & Data (ED) Vital Signs Vital Signs - 24 hr 12/29/23 14:12 12/29/23 14:31 12/29/23 14:57 Temperature 36.3 C L Temperature Source Temporal Artery Scan Pulse Rate 132 H 106 H Pulse Rate [Apical] 98 H Pulse Rate from SpO2 Sensor 102 H Pulse Rhythm [Apical] Regular Pulse Strength [Apical] Normal Respiratory Rate 18 16 17 Respiratory Effort / Characteristics Non-Labored Non-Labored Respiratory Depth Normal Normal Respiratory Pattern Regular Regular Blood Pressure 114/79 99/69 L Blood Pressure [Right Arm] 123/77 Blood Pressure Mean 90 79 Blood Pressure Mean [Right Arm] 92 Blood Pressure Position Blood Pressure Position [Right Arm] Lying Pulse Oximetry 98 97 98 Oxygen Delivery Method Room Air Room Air Oxygen Flow Rate Sepsis Recent Fever Within 48 Hours No Sepsis New/Unexplained Change in Mental Status N/A Sepsis Action Taken by Nursing No Action Required 12/29/23 15:13 12/29/23 15:18 12/29/23 15:45 Temperature Temperature Source Pulse Rate 118 H 106 H Pulse Rate [Apical] Pulse Rate from SpO2 Sensor 117 H Pulse Rhythm [Apical] Pulse Strength [Apical] Respiratory Rate 24 17 Respiratory Effort / Characteristics Respiratory Depth Respiratory Pattern Blood Pressure 109/74 112/77 Blood Pressure [Right Arm] 87/60 L Blood Pressure Mean 85 88 Blood Pressure Mean [Right Arm] 69 Blood Pressure Position Blood Pressure Position [Right Arm] Lying Pulse Oximetry 100 Oxygen Delivery Method Oxygen Flow Rate Sepsis Recent Fever Within 48 Hours Sepsis New/Unexplained Change in Mental Status Sepsis Action Taken by Nursing 12/29/23 15:51 12/29/23 16:05 12/29/23 16:09 Temperature Temperature Source Pulse Rate 122 H 121 H 108 H Pulse Rate [Apical] Pulse Rate from SpO2 Sensor 108 H Pulse Rhythm [Apical] Pulse Strength [Apical] Respiratory Rate 23 21 Respiratory Effort / Characteristics Respiratory Depth Respiratory Pattern Blood Pressure 112/77 87/69 L Blood Pressure [Right Arm] Blood Pressure Mean 88 75 Blood Pressure Mean [Right Arm] Blood Pressure Position Blood Pressure Position [Right Arm] Pulse Oximetry 100 Oxygen Delivery Method Oxygen Flow Rate Sepsis Recent Fever Within 48 Hours Sepsis New/Unexplained Change in Mental Status Sepsis Action Taken by Nursing 12/29/23 16:12 12/29/23 16:21 12/29/23 16:51 Temperature 36.6 C Temperature Source Oral Pulse Rate 106 H 127 H 87 Pulse Rate [Apical] Pulse Rate from SpO2 Sensor 106 H 127 H Pulse Rhythm [Apical] Pulse Strength [Apical] Respiratory Rate 22 17 18 Respiratory Effort / Characteristics Respiratory Depth Respiratory Pattern Blood Pressure 114/82 98/65 L 114/65 Blood Pressure [Right Arm] Blood Pressure Mean 92 76 81 Blood Pressure Mean [Right Arm] Blood Pressure Position Blood Pressure Position [Right Arm] Pulse Oximetry 99 98 100 Oxygen Delivery Method Oxygen Flow Rate 2 Sepsis Recent Fever Within 48 Hours Sepsis New/Unexplained Change in Mental Status Sepsis Action Taken by Nursing 12/29/23 17:00 12/29/23 17:05 12/29/23 17:09 Temperature 36.6 C 36.6 C Temperature Source Oral Oral Pulse Rate 83 77 Pulse Rate [Apical] 91 H Pulse Rate from SpO2 Sensor Pulse Rhythm [Apical] Pulse Strength [Apical] Respiratory Rate 16 18 19 Respiratory Effort / Characteristics Respiratory Depth Respiratory Pattern Blood Pressure 112/65 117/74 Blood Pressure [Right Arm] 102/63 Blood Pressure Mean 80 88 Blood Pressure Mean [Right Arm] 76 Blood Pressure Position Lying Lying Blood Pressure Position [Right Arm] Pulse Oximetry 100 100 Oxygen Delivery Method Oxygen Flow Rate 2 2 Sepsis Recent Fever Within 48 Hours Sepsis New/Unexplained Change in Mental Status Sepsis Action Taken by Nursing 12/29/23 17:27 Temperature 36.6 C Temperature Source Oral Pulse Rate 84 Pulse Rate [Apical] Pulse Rate from SpO2 Sensor Pulse Rhythm [Apical] Pulse Strength [Apical] Respiratory Rate 14 Respiratory Effort / Characteristics Respiratory Depth Respiratory Pattern Blood Pressure 115/68 Blood Pressure [Right Arm] Blood Pressure Mean 83 Blood Pressure Mean [Right Arm] Blood Pressure Position Lying Blood Pressure Position [Right Arm] Pulse Oximetry 100 Oxygen Delivery Method Oxygen Flow Rate 2 Sepsis Recent Fever Within 48 Hours Sepsis New/Unexplained Change in Mental Status Sepsis Action Taken by Nursing Laboratory Data 12/29/23 21:21 12/29/23 21:21 Lab Results 12/29/23 Range/Units 14:25 WBC 11.31 H (4.8-10.8) K/ul RBC 3.81 L (4.20-5.40) M/uL Hgb 11.5 L (12.0-16.0) g/dl Hct 35.1 L (37.0-47.0) % MCV 92.1 (80.0-100.0) fL MCH 30.2 (25.0-34.0) pg MCHC 32.8 (32.0-36.0) g/dL RDW Std Deviation 44.7 (36.4-46.3) fL RDW Coeff of Ray 13.5 (11.5-14.5) % Plt Count 459 H (130-400) K/uL MPV 10.1 (9.4-12.4) fL Immature Gran % (Auto) 0.3 % Neut % (Auto) 70.2 % Lymph % (Auto) 21.7 % [place] % (Auto) 5.5 % Eos % (Auto) 1.9 % Baso % (Auto) 0.4 % Neut # (Auto) 7.95 H (1.40-6.50) K/uL Lymph # (Auto) 2.45 (1.20-3.40) K/uL [place] # (Auto) 0.62 H (0.11-0.59) K/uL Eos # (Auto) 0.22 (0.00-0.50) K/uL Baso # (Auto) 0.04 (0.00-0.20) K/uL Immature Gran # (Auto) 0.03 (0.01-0.20) K/uL PT 10.3 (9.0-12.0) Seconds INR 0.9 (0.9-1.1) Sodium 137 (136-145) mmol/L Potassium 3.9 (3.5-5.1) mmol/L Chloride 105 (98-107) mmol/L Carbon Dioxide 25 (21-32) mmol/L Anion Gap 7 (3-11) BUN 12 (6-23) mg/dl Creatinine 0.82 (0.6-1.2) mg/dl Est Cr Clr Drug Dosing 104.1 ml/min eGFR 96.80 BUN/Creatinine Ratio 14.6 (10-20) Glucose 93 (70-99(Fasting)) mg/dl Calcium 9.6 (8.6-10.3) mg/dl Total Bilirubin 0.3 (0.2-1.0) mg/dl AST 14 (13-39) U/L ALT 13 (7-52) U/L Alkaline Phosphatase 84 (34-104) U/L Total Protein 8.0 (6.0-8.3) gm/dl Albumin 4.8 (3.4-5.0) gm/dl Globulin 3.2 (2.5-4.0) gm/dl Albumin/Globulin Ratio 1.5 (0.9-2) TSH 7.106 H (0.300-4.500) uIu/ml Free T4 0.63 (0.61-1.60) ng/dl Blood Type O Positive Antibody Screen NEGATIVE Crossmatch See Detail Administered Medications Meperidine HCl (Meperidine Hcl 25 Mg/Ml Carp/Vial) 50 mg IV Q4H PRN PRN Reason: Pain Scale 1,2,3,4,5 Stop: 01/12/24 19:37 Last Admin: 12/29/23 21:22 Dose: 50 mg Documented By: KRISTY Oxycodone/Acetaminophen (Oxycodone/Acetaminophen 5mg/325mg Tab) 2 tab PO Q4H PRN PRN Reason: Pain Scale 6,7,8,9,10 Stop: 01/12/24 19:37 Last Admin: 12/29/23 21:11 Dose: 2 tab Documented By: TMG Discontinued Medications Bupivacaine HCl/Epinephrine Bitart (Bupivacaine/Epinephrine 0.5% Mpf 1:200,000 30 Ml Vial) Confirm Administered Dose 30 ml .ROUTE .STK-MED ONE Stop: 12/29/23 16:46 Last Admin: 12/29/23 19:25 Dose: 10 ml Documented By: OS Epinephrine HCl (Epinephrine 1.5" Ndl 0.1 Mg/Ml Syr) Confirm Administered Dose 1 mg IV .STK-MED ONE Stop: 12/29/23 16:33 Last Admin: 12/29/23 17:18 Dose: Not Given Documented By: HELLEN Fentanyl Citrate (Fentanyl Citrate Pf 100 Mcg/2 Ml Vial) Confirm Administered Dose 100 mcg .ROUTE .STK-MED ONE Stop: 12/29/23 19:55 Last Increment: 12/29/23 20:20 Dose: 25 mcg Documented By: LML Increment: 12/29/23 20:15 Dose: 25 mcg Documented By: LML Increment: 12/29/23 20:04 Dose: 25 mcg Documented By: LML Increment: 12/29/23 19:55 Dose: 25 mcg Documented By: JULITO Sodium Chloride (Nss) 1,000 mls @ 999 mls/hr IV .Q1H1M ONE Stop: 12/29/23 16:16 Last Infusion: 12/29/23 16:25 Dose: Infused Documented By: Admin: 12/29/23 15:24 Dose: 999 mls/hr Documented By: HELLEN Sodium Chloride (Nss) 1,000 mls @ 999 mls/hr IV .Q1H1M ONE Stop: 12/29/23 17:34 Last Admin: 12/29/23 16:35 Dose: 999 mls/hr Documented By: HELLEN Cefazolin Sodium (Ancef 2000mg) 2,000 mg in 15 mls @ 3.75 mls/min IV PREOP ONE; Protocol Stop: 12/29/23 17:08 Last Admin: 12/29/23 18:00 Dose: 3.75 mls/min Documented By: [id number] Miscellaneous ( Floseal Hemostatic Matrix 10ml) 10 ml TOP ONCE ONE Stop: 12/29/23 19:03 Last Admin: 12/29/23 19:02 Dose: 10 ml Documented By: OS Norepinephrine Bitartrate (Norepinephrine/D5w 4 Mg/250 Ml) Confirm Administered Dose 4 mg IV .STK-MED ONE Stop: 12/29/23 16:35 Last Admin: 12/29/23 17:18 Dose: Not Given Documented By: [facility] Discharge Plan Visit Data Chief Complaint: Vaginal Bleeding Stated Complaint: VAGINAL BLEEDING ED Provider: Thu Ramos Discharge Problem: Abnormal vaginal bleeding, Status post laparoscopy-assisted vaginal hysterectomy, Hypotension Patient Disposition: Admitted As Inpatient Discharge Instructions Interventions: ED Discharge Assessment Last Done: 12/29/23 17:42
[2023-12-29] MEDS ORDERED: SODIUM CHLORIDE 0.9% 100 ML IV PRN ×2 (16:28→16:40)
[2023-12-29 16:31] LABS: T4 Free Thyroxine 0.63 ng/dl (0.61-1.60)
[2023-12-29] MEDS ORDERED: fentaNYL citrate PF 100 MCG/2 ML VIAL ONE (16:48)
[2023-12-29] MEDS ORDERED: ARTIFICIAL TEARS OP OINT 3.5 GM TUBE ONE (16:48)
[2023-12-29] MEDS ORDERED: PHENYLEPHRINE HCL 10 MG/ML VIAL ONE (16:50)
[2023-12-29] MEDS ORDERED: KETAMINE HCL 10MG/ML SYR ONE (17:01)
[2023-12-29] MEDS ORDERED: PROPOFOL IV EMULSION 10 MG/ML 20 ML VIAL IV ONE (17:01)
[2023-12-29] MEDS ORDERED: ROCURONIUM BROMIDE 10 MG/ML 5 ML VIAL IV ONE ×2 (17:04)
--- NOTE | 2023-12-29 17:08 | Anesthesiology Consultation ---
Date of Service December 29, 2023 Assessment & Plan Chart Review Chart Review: Acceptable Risk for Surgery and Patient NOT seen in Pre Admission Testing Consults Requested none History Surgery Operation Date: 12/29/23 16:40 Proposed Procedures p Laparoscopic Assisted Vaginal Hysterecto - Adalid Lopez MD Height/Weight Height: 5 ft 6 in Weight: 80 kg Allergies Allergy/AdvReac Type Severity Reaction Status Date / Time No Known Allergies Allergy Verified 11/30/23 08:50 Medications Home Medications Medication Instructions Recorded Confirmed Last Taken levothyroxine 25 mcg tablet 25 mcg PO QAM 07/01/23 12/22/23 11/30/23 07:00 rizatriptan 10 mg tablet 10 mg PO DIRECTED PRN Migraine 07/01/23 12/22/23 Unknown Headache trazodone 100 mg tablet 100 mg PO HS 07/01/23 12/22/23 11/28/23 21:30 Active Medications Generic Name Dose Route Start Last Admin Trade Name Freq PRN Reason Stop Dose Admin Sodium Chloride 1,000 mls @ 999 mls/hr 12/29/23 16:34 12/29/23 16:35 Nss IV 12/29/23 17:34 999 mls/hr .Q1H1M ONE Administration Past Medical History Medical History History of postoperative nausea and vomiting severe Anxiety Hypothyroidism History of COVID-19 (02/2023) no hosp; resolved History of anemia Past Family History Family History Grandfather (Paternal) Stroke Grandmother Hypertension Grandfather (Paternal) Hypertension Past Surgical History Surgical History Status post wisdom tooth extraction S/P tubal ligation H/O LEEP H/O laparoscopy diagnostic Status post cholecystectomy laparoscopic with cholangiography >> appendix removed at same time Social History Smoking Status: Current every day smoker Smoking cigarettes per day: 7 sticks per day - Patient advised on smoking cessation. Do You Dip or Chew Tobacco: No Hx Alcohol Use: No Alcohol type: beer and hard liquor alcohol intake frequency: a few times a month Hx Substance Use: Yes substance use type: marijuana Substance Use Type Other:: Patient has legal card for marijuana. Last Used Substance: Unknown Physical Exam Vital Signs Last Vital Signs Temp 36.6 C 12/29/23 17:05 Pulse 83 12/29/23 17:05 Resp 18 12/29/23 17:05 BP 112/65 12/29/23 17:05 Pulse Ox 100 12/29/23 17:05 O2 Del Method Room Air 12/29/23 14:31 O2 Flow Rate 2 12/29/23 17:05 Testing Laboratory Results 12/29/23 14:25 12/29/23 14:25 PT 10.3 Seconds (9.0-12.0) 12/29/23 14:25 INR 0.9 (0.9-1.1) 12/29/23 14:25 Blood Type O Positive 12/29/23 14:25 Antibody Screen NEGATIVE 12/29/23 14:25
--- NOTE | 2023-12-29 17:13 | History & Physical Report ---
Date of Service December 29, 2023 Assessment & Plan (1) Postoperative vaginal bleeding following genitourinary procedure: Plan: 33 yo s/p TLH, BL salpingectomy on 11/29, presenting with active hemorrhage, quick drop in HB, Blood being transfused Plan to go to OR for EUA, Laparoscopy, possible laparotomy Patient understands and signed and informed consent. (2) Status post laparoscopy-assisted vaginal hysterectomy: (3) Abnormal vaginal bleeding: (4) Acute hemorrhage: History of Present Illness Primary Care Provider: Louis Hoang MD Patient is a 33 yo who is status post laparoscopic hysterectomy [address] Stiles. She developed some vaginal bleeding last weekend and was seen and admitted by myself after packing vagina with Monsel solaked vaginla packing. She was here for over 24 hours and has not bled and was discharged by Dr Le next day. Packing was removed and it was dry. the bleeding seemed to have subsided until yesterday when she began to have bleeding again and went back to the [facility] and had more Monsel placed by Dr Le and was scheduled to follow-up on Sunday however today she began to s uddenly bleed heavily again this afternoon with passage of golf ball sized clots. She does have a sense of abdominal pressure and fatigue. She denies chest pain or shortness of breath, fevers or chills, nausea or vomiting. By time of arrival here, patient felt as though she was passing a large clot again. She was noted to be tachycardic and hypotensive was startd on IVF. She felt better until I came started to have more VB, sokaed 5 chuckc in an hour or so. She felt dizzy and was passing out and could not perform a pelvic exam. Decision was made ot proceed to OR quickly. IVF, blood transfusion started. Allergies Allergy/AdvReac Type Severity Reaction Status Date / Time No Known Allergies Allergy Verified 11/30/23 08:50 Home Medications Medication Instructions Recorded Confirmed Type levothyroxine 25 mcg tablet 25 mcg PO QAM 07/01/23 12/22/23 History rizatriptan 10 mg tablet 10 mg PO DIRECTED PRN Migraine 07/01/23 12/22/23 History Headache trazodone 100 mg tablet 100 mg PO HS 07/01/23 12/22/23 History Patient History Medical History History of postoperative nausea and vomiting severe Anxiety Hypothyroidism History of COVID-19 (02/2023) no hosp; resolved History of anemia Surgical History Status post wisdom tooth extraction S/P tubal ligation H/O LEEP H/O laparoscopy diagnostic Status post cholecystectomy laparoscopic with cholangiography >> appendix removed at same time Family History Grandfather (Paternal) Stroke Grandmother Hypertension Grandfather (Paternal) Hypertension Social History Smoking Status: Current every day smoker Tobacco Type: Cigarettes Cigarettes Per Day: 7 sticks per day - Patient advised on smoking cessation.; Second Hand Exposure: Yes; Do You Dip or Chew Tobacco: No; Hx Alcohol Use: No Hx Substance Use: Yes Last Used Substance: Unknown Substance Use Type Other:: Patient has legal card for marijuana. 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, bilateral salpingectomy 11/29 Review of Systems as per Subjective / HPI Physical Exam Constitutional: WD/WN, vitals as above well developed, well nourished, + frail appearing, + diaphoretic and + lethargic Genitourinary: normal external appearance (passing cloths) Results & Data Vital Signs (Past 12 Hours) Vital Signs Temp Pulse Pulse Resp BP BP Pulse Ox 12/29/23 17:05 36.6 C 83 18 112/65 100 12/29/23 17:00 91 H 16 102/63 12/29/23 16:51 36.6 C 87 18 114/65 100 12/29/23 16:21 127 H 17 98/65 L 98 12/29/23 16:12 106 H 22 114/82 99 12/29/23 16:09 108 H 21 87/69 L 100 12/29/23 16:05 121 H 12/29/23 15:51 122 H 23 112/77 12/29/23 15:45 106 H 17 112/77 12/29/23 15:18 118 H 24 109/74 100 12/29/23 15:13 87/60 L 12/29/23 14:57 106 H 17 99/69 L 98 12/29/23 14:31 98 H 16 123/77 97 12/29/23 14:12 36.3 C L 132 H 18 114/79 98 O2 Del Method O2 Flow Rate 12/29/23 17:05 2 12/29/23 17:00 12/29/23 16:51 2 12/29/23 16:21 12/29/23 16:12 12/29/23 16:09 12/29/23 16:05 12/29/23 15:51 12/29/23 15:45 12/29/23 15:18 12/29/23 15:13 12/29/23 14:57 12/29/23 14:31 Room Air 12/29/23 14:12 Room Air Laboratory Results Lab Results 12/29/23 Range/Units 14:25 WBC 11.31 H (4.8-10.8) K/ul RBC 3.81 L (4.20-5.40) M/uL Hgb 11.5 L (12.0-16.0) g/dl Hct 35.1 L (37.0-47.0) % MCV 92.1 (80.0-100.0) fL MCH 30.2 (25.0-34.0) pg MCHC 32.8 (32.0-36.0) g/dL RDW Std Deviation 44.7 (36.4-46.3) fL RDW Coeff of Ray 13.5 (11.5-14.5) % Plt Count 459 H (130-400) K/uL MPV 10.1 (9.4-12.4) fL Immature Gran % (Auto) 0.3 % Neut % (Auto) 70.2 % Lymph % (Auto) 21.7 % [place] % (Auto) 5.5 % Eos % (Auto) 1.9 % Baso % (Auto) 0.4 % Neut # (Auto) 7.95 H (1.40-6.50) K/uL Lymph # (Auto) 2.45 (1.20-3.40) K/uL [place] # (Auto) 0.62 H (0.11-0.59) K/uL Eos # (Auto) 0.22 (0.00-0.50) K/uL Baso # (Auto) 0.04 (0.00-0.20) K/uL Immature Gran # (Auto) 0.03 (0.01-0.20) K/uL PT 10.3 (9.0-12.0) Seconds INR 0.9 (0.9-1.1) Sodium 137 (136-145) mmol/L Potassium 3.9 (3.5-5.1) mmol/L Chloride 105 (98-107) mmol/L Carbon Dioxide 25 (21-32) mmol/L Anion Gap 7 (3-11) BUN 12 (6-23) mg/dl Creatinine 0.82 (0.6-1.2) mg/dl Est Cr Clr Drug Dosing 104.1 ml/min eGFR 96.80 BUN/Creatinine Ratio 14.6 (10-20) Glucose 93 (70-99(Fasting)) mg/dl Calcium 9.6 (8.6-10.3) mg/dl Total Bilirubin 0.3 (0.2-1.0) mg/dl AST 14 (13-39) U/L ALT 13 (7-52) U/L Alkaline Phosphatase 84 (34-104) U/L Total Protein 8.0 (6.0-8.3) gm/dl Albumin 4.8 (3.4-5.0) gm/dl Globulin 3.2 (2.5-4.0) gm/dl Albumin/Globulin Ratio 1.5 (0.9-2) TSH 7.106 H (0.300-4.500) uIu/ml Free T4 0.63 (0.61-1.60) ng/dl Blood Type O Positive Antibody Screen NEGATIVE Crossmatch See Detail Repeat Hb 5.1
[2023-12-29] MEDS: NOREPINEPHRINE/D5W 4 MG/250 ML IV ONE (17:18)
[2023-12-29] MEDS ORDERED: ceFAZolin 330 MG/ML 1 GM VIAL ONE (17:58)
[2023-12-29] MEDS: ceFAZolin 2000MG 2,000 MG/15 ML SYR IV ONE (18:00)
[2023-12-29] MEDS: FLOSEAL HEMOSTATIC MATRIX 10ML TOP ONE (19:02)
[2023-12-29] MEDS ORDERED: VASOPRESSIN 20 UNIT/ML VIAL ONE (19:23)
[2023-12-29] MEDS ORDERED: SUGAMMADEX SODIUM 200 MG/2 ML VIAL IV ONE (19:23)
[2023-12-29] MEDS: BUPIVACAINE/EPINEPHRINE 0.5% MPF 1:200,000 30 ML VIAL ONE (19:25)
[2023-12-29] MEDS ORDERED: MEPERIDINE HCL 25 MG/ML CARP/VIAL IV PRN (19:38)
[2023-12-29] MEDS ORDERED: MAGNESIUM HYDROXIDE SUSP 30 ML UDC PO PRN (19:38)
[2023-12-29] MEDS ORDERED: oxyCODONE/ACETAMINOPHEN 5mg/325mg TAB PO PRN (19:38)
[2023-12-29] MEDS ORDERED: bisacodyL 10 MG SUPP PR PRN (19:38)
[2023-12-29] MEDS ORDERED: MEPERIDINE HCL 50 MG/ML CARP IV PRN (19:38)
--- NOTE | 2023-12-29 19:40 | Operative Report ---
Post Operative Report Pre & Post Diagnosis Operation Date: 12/29/23 16:40 Pre-Op Diagnosis: 1. Postoperative vaginal bleeding following genitourinary procedure 2. Status post laparoscopy-assisted vaginal hysterectomy 3. Abnormal vaginal bleeding 4. Acute hemorrhage Post-Op Diagnosis: 1. vaginal cuff bleed I identified the patient and participated in the time-out.: Yes Procedure Operation Date: 12/29/23 16:40 Actual Procedures p EUA, Vaginal cuff repair from vagina, operative laparoscopy, lyse of adhesion between omentum and vaginal vault, completion of vaginal cuff repair with Endo Stitch, irrigation and suction - Adalid Lopez MD Surgeon Adalid Lopez MD Standards Analyst Dr. Hammonds Quantitative Blood Loss (QBL) 10 ml Findings Consistent with Post-Op Diagnosis Examination Under anesthesia revealed large clots in the vagina, unable to determine the source, cuff intact digitally. Fluids 2 units of blood 1500 ml LR Specimens NONE Drains Smith Anesthesia Type General Complications none Disposition Accompanied Patient To Recovery: Yes Indications Patient is a 33-year-old -0-0-2 who is status post total laparoscopic hysterectomy, bilateral salpingectomy by Dr. Stiles on November 29 for history of heavy menstrual bleeding. She presented to the ER with heavy vaginal bleeding, passing large clots and drop in hemoglobin from 11.5 to 5.1 within 2 hours. Due to active bleeding and drop in H&H decision was made to proceed to the OR directly. She was given 2 units of packed red blood cells in the ER as fast as possible and then taken to the OR. Description of Procedure The patient was taken to operating room where general anesthesia was given without difficulty. She was placed in dorsal lithotomy position and prepared and draped in usual sterile fashion. Exam under anesthesia was done with above findings. Speculum was placed in the vagina and vaginal cuff was visualized, it appeared to be intact with no active bleeding. there was prolapse from anterior posterior and lateral vaginal tarango obstructing the vision. Digital exam was done by myself and cuff felt to be intact. Then more retraction was applied to the vaginal vault by licensed occupational therapy assistant team. Allis clamps were used to grasp the anterior vaginal wall close to the suture lines. it appeared to be some of the edges were oozing and sutures were loose coming off. Those sutures were taken off from vagina. Then the cuff was repaired with 0 Vicryl in a running locked fashion starting from right corner to the left continuously. Gloves were changed and attention was taken to the patient's abdomen. A 5 mm periumbilical skin incision was made with a scalpel. The subcuticular fat tissue was dissected off with the tip of hemostat. Fascia was visualized and grasped with 2 Jennifer clamps and elevated. Veress needle was passed through the fascia and peritoneum. Normal saline test was done it was flowing freely into the Veress needle. CO2 gas was applied to the needle and abdomen was insufflated with CO2 gas, pressure was set to 15 mmHG. It was then removed and then 5 mm trocar with scope in it was introduced from this incision under direct visualization with the scope. It was entered to the abdominal cavity. Upper abdomen appeared to be normal with normal liver and bowel surfaces. Pelvis was Visualized and there was a piece of omentum attached to the vaginal vault. 2 more 5mm trocars were placed from right and left upper quadrants, about 3 cm medial and superior to the anterior superior iliac spines bilaterally. Those were placed under direct visualization with the scope. The adhered omentum was gently removed from vaginal vault and then it was visualized. There was no active bleeding. There was a 1-2 cm defect in the vaginal cuff. Decision was made to repair it with Endo Stitch. One of the trocar sites were extended to 10 mm. Endo Stitch was introduced from there. The rest of the vaginal cuff was repaired with Endo Stitch with continued running stitch and then Lapra-Ty was placed on the tip. Then the pelvis was Irrigated with warm normal saline and suctioned. The surgical site was hemostatic as well as the rest of the pelvis. The pictures were taken before and after the procedure. Ovaries appeared to be normal bilaterally. Then Diony-see hemostatic foam was introduced from trocar and it was used to cover the surgical time and to prevent any oozing in the future. The pictures were taken again and and it was hemostatic. The decision was made to end the procedure. Trocars were removed from the abdominal incisions under direct visualization with the scope. the gas was emptied from abdomen. Fascial incision at the 10 mm trocar site was repaired with 0 Vicryl with [id number] stitches x 3. Skin issues incisions were repaired with 4-0 Burt cryl in subcuticular fashion. The procedure was ended. no complications happened. I was and Dr Hammonds was present during whole procedure. Dr. Stiles came in middle of the case and was at the bedside until the end of the case. She was taken off from the lithotomy position, extubated successfully and taken to recovery in stable condition. she was given 2 g of cefazolin before surgery. My assistants were needed for manipulation, retraction for tissue exposure and handling of laparoscope and laparoscopic instruments to ensure adequate visualization, gentle tissue manipulation and hemostasis. I attest to the content of the Intraoperative Record and any orders documented therein. Any exceptions are noted below.
[2023-12-29] MEDS ORDERED: HYDROmorphone INJ 2 MG/ML SYR/VIAL IV PRN (19:50)
[2023-12-29] MEDS ORDERED: ePHEDrine sulfate 50 MG/ML AMP IV PRN (19:50)
[2023-12-29] MEDS ORDERED: ONDANSETRON INJ 2 MG/ML 2 ML VIAL IV PRN (19:50)
[2023-12-29] MEDS ORDERED: PROMETHAZINE HCL 6.25 MG in SODIUM CHLORIDE 0.9% 50 ML IV PRN (19:50)
[2023-12-29] MEDS ORDERED: fentaNYL citrate PF 100 MCG/2 ML VIAL IV PRN (19:50)
[2023-12-29] MEDS ORDERED: ATROPINE SULFATE 0.1 MG/ML 10ML SYR IV PRN (19:50)
[2023-12-29] MEDS: fentaNYL citrate PF 100 MCG/2 ML VIAL ONE (19:55)
--- NOTE | 2023-12-29 19:59 | Anesthesiology Progress Note ---
Date of Service December 29, 2023 Anesthesia Post Procedure Vital Signs Vital Signs: Temp Pulse Pulse Resp BP BP Pulse Ox 12/29/23 17:27 36.6 C 84 14 115/68 100 12/29/23 17:09 36.6 C 77 19 117/74 100 12/29/23 17:05 36.6 C 83 18 112/65 100 12/29/23 17:00 91 H 16 102/63 12/29/23 16:51 36.6 C 87 18 114/65 100 12/29/23 16:21 127 H 17 98/65 L 98 12/29/23 16:12 106 H 22 114/82 99 12/29/23 16:09 108 H 21 87/69 L 100 12/29/23 16:05 121 H 12/29/23 15:51 122 H 23 112/77 12/29/23 15:45 106 H 17 112/77 12/29/23 15:18 118 H 24 109/74 100 12/29/23 15:13 87/60 L 12/29/23 14:57 106 H 17 99/69 L 98 12/29/23 14:31 98 H 16 123/77 97 12/29/23 14:12 36.3 C L 132 H 18 114/79 98 O2 Del Method O2 Flow Rate 12/29/23 17:27 2 12/29/23 17:09 2 12/29/23 17:05 2 12/29/23 17:00 12/29/23 16:51 2 12/29/23 16:21 12/29/23 16:12 12/29/23 16:09 12/29/23 16:05 12/29/23 15:51 12/29/23 15:45 12/29/23 15:18 12/29/23 15:13 12/29/23 14:57 12/29/23 14:31 Room Air 12/29/23 14:12 Room Air Transfer of Care Handoff Completed per policy Notes Mental Status: alert / awake / arousable Patient Amnestic to Procedure: Yes Nausea / Vomiting: adequately controlled Pain: adequately controlled Airway Patency, RR, SpO2: stable & adequate BP & HR: stable & adequate Hydration State: stable & adequate Anesthetic Complications: no major complications apparent
--- NOTE | 2023-12-29 20:29 | Critical Care Consultation ---
Date of Consultation December 29, 2023 Assessment & Plan (1) Acute hemorrhage: Plan Reason Critically Ill: 33 YOF presents to ICU post OR vaginal examination under anesthesia for acute hemorrhage and found to have vaginal cuff bleed. She is currently hemodynamically stable without use of vasopressors or current infusions of blood products. ICU overnight for hemodynamic monitoring and continued resuscitation if needed. Neuro: Acute pain post procedure, history of migraines- CAM ICU: NEGATIVE - Pain control per primary surgical service - Hold home trazodone while receiving other sedative medications - continue migraine abortive therapy if formulary or equivalent if needed Cardiac - Shock- hemorrhagic - Shock which appears to have resolved with OR procedure and transfusion of PRBC - MAPS adequate at 65-75 - Follow labs at this time- HGB goal >8 - Transfuse 1:1:1 if she re-bleeds - Maintain euthermia - Replete electrolytes and calcium if required Respiratory - No acute needs - wean oxygen as able GI - No acute needs - Advance diet as tolerated RENAL/LYTES - No acute needs - As above follow labs for evidence of organ dysfunction and electrolyte replacement - surgery per primary service- Smith continue until am- primary service to manage ENDO - Hypothyroidism hx - TSH 7 with adequate T4- continue Levothyroxine HEME - Acute blood loss/hemorrhagic shock - As above Transfuse for HGB < 8.0, or active hemorrhage with or without organ d ysfunction - Follow platelet count - INR/PT/PTT and Fibrinogen pending - Replace clotting factors/cryo if needed - Goal 1:1:1 transfusion if more products are required ID - NO concern at this time for infective process - Pre and post surgical antibiotics for surgical site per primary service LINES/IV ACCESS - Sarah JJ Continue use of these lines DVT PROPHYLAXIS SCDS, Chemoprophylaxis per primary surgical service when they feel it is appropriate- DISPO: ICU overnight monitor hemodynamics, labs for organ dysfunction, and continued resuscitation if needed I have personally spent 35 minutes of time in the direct management of this patient. This is a life/limb threatening event. This includes time spent evaluating patient, direct bedside care, chart review, placing orders, interpret ation of diagnostic studies, discussion with consultants, patient, and family members, as well as other required patient management activities. This time is exclusive of all separately billable procedures. Thank you for allowing us to participate in the care of this patient. Please refer to my attending physician's documentation for any further recommendations. History of Present Illness Reason for Consultation: hemorrhagic shock Requesting Physician: Adalid Lopez MD Attending Physician: Fadi Hammonds MD History of Present Illness 33 YOF with medical history of: Hypothyroidism, menometrorrhagia, migraines. Patient presented to the [facility] today for vaginal bleeding, which appears she has been having issues with since her hysterectomy that was performed ~4 weeks ago. She has been seen a few times in the EMD and recently on 12/22 she had vaginal packing inserted. Today she was at her daughter's birthday libertarian and started to get lower abdominal cramping and then started bleeding "heavy". She did report blood with some clots. She presented to the EMD she was noted to be hypotensive 87-90s and tachycardic into the 120s. She was noted with HGB of 11.5 and also a report of drop to HGB to 5.1, however unable to find this value in our EMR, and Platelet count of 459. She was taken to the OR urgently and given 2 units of PRBC and ~ 3.5 Liters Crystalloid. In the OR was noted to have vaginal cuff bleed and EBL was 10ml. She was evaluated while still in PACU where she was awake, HR in 70s BP 90-115s, still with pain but tolerable. She is making adequate urine. Will follow in ICU overnight for continued resuscitation needs if required. Awaiting current lab work CODE: FULL Allergies Allergy/AdvReac Type Severity Reaction Status Date / Time No Known Allergies Allergy Verified 11/30/23 08:50 Home Medications Medication Instructions Recorded Confirmed Type levothyroxine 25 mcg tablet 25 mcg PO QAM 07/01/23 12/22/23 History rizatriptan 10 mg tablet 10 mg PO DIRECTED PRN Migraine 07/01/23 12/22/23 History Headache trazodone 100 mg tablet 100 mg PO HS 07/01/23 12/22/23 History Patient History Medical History History of postoperative nausea and vomiting severe Anxiety Hypothyroidism History of COVID-19 (02/2023) no hosp; resolved History of anemia Surgical History Status post wisdom tooth extraction S/P tubal ligation H/O LEEP H/O laparoscopy diagnostic Status post cholecystectomy laparoscopic with cholangiography >> appendix removed at same time Family History Grandfather (Paternal) Stroke Grandmother Hypertension Grandfather (Paternal) Hypertension Social History Smoking Status: Current every day smoker Tobacco Type: Cigarettes Cigarettes Per Day: 7 sticks per day - Patient advised on smoking cessation.; Second Hand Exposure: Yes; Do You Dip or Chew Tobacco: No; Hx Alcohol Use: No Hx Substance Use: Yes Last Used Substance: Unknown Substance Use Type Other:: Patient has legal card for marijuana. Preferred Language: Finnish Communication Ability: Effective Cotton Program Technician Required: No Beliefs That Will Affect Care: None Current Living Situation: Alone Feels Safe at Home: Yes Assistive Devices: None Review of Systems Review of Systems: REVIEW OF SYSTEMS: Constitutional: No fever, sweats or chills Eyes: No diplopia, no worsening or blurred vision ENT: normal hearing, no trouble swallowing Respiratory: No cough, sputum, dyspnea at rest or on exertion Cardiovascular: No chest pain, tightness or palpitations Abdomen: No pain, nausea, vomiting, diarrhea or constipation : (+) Pain, bleeding clots Musculoskeletal: No joint pain, calf pain, swelling Neurologic: No weakness, numbness/tingling, or balance problems Psychiatric: No anxiety or depression Skin: No rash or itch, or easy bruising Physical Exam Physical Exam: PHYSICAL EXAM: General: awake, alert, no apparent distress Head: Normocephalic, atraumatic ENT: PERRLA, EOMI, no pharyngeal exudate, mucous membranes dry Neuro: AAO x 3, speech clear and appropriate, strength intact bilaterally 5/5 Chest: equal rise and fall of the chest, no accessory muscle use, no heaves or thrills, Clear to auscultation, on 2LNC Cardiac: Regular rate and rhythm, telemetry reviewed- NSR no ectopy, skin warm dry, cap refill <3 seconds, peripheral pulses +2 no JVD, no murmur, no edema GI: NABS x 4 quadrants, soft, nontender to palpation, no rebound, guarding or tenderness : Pain suprapubic with palpation, Smith to gravity, peripad just placed, Psych: Normal mood and affect Skin: bruise to right forearm from pervious IV or blood draw, no rash or erythema, SCDS on Results & Data Results & Data Vital Signs (Past 12 Hours) Vital Signs Temp Pulse Pulse Resp BP BP Pulse Ox 12/29/23 19:45 36.0 C L 82 16 108/69 98 12/29/23 17:27 36.6 C 84 14 115/68 100 12/29/23 17:09 36.6 C 77 19 117/74 100 12/29/23 17:05 36.6 C 83 18 112/65 100 12/29/23 17:00 91 H 16 102/63 12/29/23 16:51 36.6 C 87 18 114/65 100 12/29/23 16:21 127 H 17 98/65 L 98 12/29/23 16:12 106 H 22 114/82 99 12/29/23 16:09 108 H 21 87/69 L 100 12/29/23 16:05 121 H 12/29/23 15:51 122 H 23 112/77 12/29/23 15:45 106 H 17 112/77 12/29/23 15:18 118 H 24 109/74 100 12/29/23 15:13 87/60 L 12/29/23 14:57 106 H 17 99/69 L 98 12/29/23 14:31 98 H 16 123/77 97 12/29/23 14:12 36.3 C L 132 H 18 114/79 98 O2 Del Method O2 Flow Rate 12/29/23 19:45 Oxymask 5 12/29/23 17:27 2 12/29/23 17:09 2 12/29/23 17:05 2 12/29/23 17:00 12/29/23 16:51 2 12/29/23 16:21 12/29/23 16:12 12/29/23 16:09 12/29/23 16:05 12/29/23 15:51 12/29/23 15:45 12/29/23 15:18 12/29/23 15:13 12/29/23 14:57 12/29/23 14:31 Room Air 12/29/23 14:12 Room Air Laboratory Results Abnormal lab results 12/29/23 Range/Units 14:25 WBC 11.31 H (4.8-10.8) K/ul RBC 3.81 L (4.20-5.40) M/uL Hgb 11.5 L (12.0-16.0) g/dl Hct 35.1 L (37.0-47.0) % Plt Count 459 H (130-400) K/uL Neut # (Auto) 7.95 H (1.40-6.50) K/uL [place] # (Auto) 0.62 H (0.11-0.59) K/uL TSH 7.106 H (0.300-4.500) uIu/ml Crossmatch See Detail Medications Administered Home Medications levothyroxine 25 mcg tablet 25 mcg PO QAM 07/01/23 [History Confirmed 12/22/23] rizatriptan 10 mg tablet 10 mg PO DIRECTED PRN Migraine Headache 07/01/23 [History Confirmed 12/22/23] trazodone 100 mg tablet 100 mg PO HS 07/01/23 [History Confirmed 12/22/23] Active Medications Acetaminophen (Acetaminophen 325 Mg Tab) 650 mg PO Q6H PRN PRN Reason: pain, headache or fever Stop: 01/28/24 19:37 Atropine Sulfate (Atropine Sulfate 0.1 Mg/Ml 10ml Syr) 0.5 mg IV Q1M PRN PRN Reason: PACU Use-HR<40 &/or Bradycardi Stop: 12/30/23 03:50 Bisacodyl (Bisacodyl 10 Mg Supp) 10 mg NE DAILY PRN PRN Reason: Constipation or flatulance Stop: 01/28/24 19:37 Docusate Sodium (Docusate Sodium 100 Mg Cap) 100 mg PO BID VENECIA Stop: 01/28/24 20:59 Ephedrine Sulfate (Ephedrine Sulfate 50 Mg/Ml Amp) 5 mg IV Q5M PRN PRN Reason: PACU Use Only-SBP<90 mmHg Stop: 12/30/23 03:50 Fentanyl Citrate (Fentanyl Citrate Pf 100 Mcg/2 Ml Vial) 50 mcg IV Q5M PRN PRN Reason: PACU Use Only-Pain Stop: 12/30/23 03:50 Hydromorphone HCl (Hydromorphone Inj 2 Mg/Ml Syr/Vial) 0.5 mg IV Q5M PRN PRN Reason: PACU Use Only-Pain Stop: 12/30/23 03:50 Sodium Chloride (Nss) 100 mls @ 15 mls/hr IV .Q6H40M PRN PRN Reason: For Transfusion Duration Stop: 12/30/23 00:29 Promethazine HCl (Phenergan) 12.5 mg in 50.5 mls @ 202 mls/hr IV Q6H PRN PRN Reason: Nausea And Vomiting Stop: 01/28/24 19:37 Promethazine HCl 6.25 mg/ (Sodium Chloride) 50.25 mls @ 204 mls/hr IV ONCE PRN PRN Reason: PACU Use Only-Nausea/Vomiting Stop: 12/30/23 03:50 Ibuprofen (Ibuprofen 600 Mg Tab) 600 mg PO Q4H PRN PRN Reason: pain, ACEVES, cramping or fever Stop: 01/28/24 19:37 Magnesium Hydroxide (Magnesium Hydroxide Susp 30 Ml Udc) 30 ml PO Q6H PRN PRN Reason: Constipation Stop: 01/28/24 19:37 Meperidine HCl (Meperidine Hcl 50 Mg/Ml Carp) 50 mg IV Q4H PRN PRN Reason: Pain Scale 1,2,3,4,5 Stop: 01/12/24 19:37 Meperidine HCl (Meperidine Hcl 25 Mg/Ml Carp/Vial) 75 mg IV Q4H PRN PRN Reason: Pain Scale 6,7,8,9,10 Stop: 01/12/24 19:37 Ondansetron HCl (Ondansetron Inj 2 Mg/Ml 2 Ml Vial) 4 mg IV Q6H PRN PRN Reason: Nausea And Vomiting Stop: 01/28/24 19:37 Ondansetron HCl (Ondansetron Inj 2 Mg/Ml 2 Ml Vial) 4 mg IV ONCE PRN PRN Reason: PACU Use Only-Nausea/Vomiting Stop: 12/30/23 03:50 Oxycodone/Acetaminophen (Oxycodone/Acetaminophen 5mg/325mg Tab) 1 tab PO Q4H PRN PRN Reason: Pain Scale 1,2,3,4,5 Stop: 01/12/24 19:37 Oxycodone/Acetaminophen (Oxycodone/Acetaminophen 5mg/325mg Tab) 2 tab PO Q4H PRN PRN Reason: Pain Scale 6,7,8,9,10 Stop: 01/12/24 19:37 Simethicone (Simethicone 80 Mg Chew) 80 mg PO TID PRN PRN Reason: Gas Stop: 01/28/24 19:37 Coding Level of Care Code 97914 IN/OBS CONSULT LVL 2,35M Diagnoses Acute hemorrhage R58
[2023-12-29] MEDS: oxyCODONE/ACETAMINOPHEN 5mg/325mg TAB PO PRN (21:11)
[2023-12-29] MEDS: MEPERIDINE HCL 25 MG/ML CARP/VIAL IV PRN (21:22)
[2023-12-29 21:38] LABS: Hematocrit (blood only) 31.4 % (37.0-47.0); Hemoglobin 10.3 g/dl (12.0-16.0)
[2023-12-29 22:01] LABS: Albumin Level 3.3 gm/dl (3.4-5.0); BUN Creatinine Ratio 15.1 (10-20); Bilirubin Direct 0.1 mg/dl (0-0.2); Bilirubin,Total 0.3 mg/dl (0.2-1.0); Calcium 6.9 mg/dl (8.6-10.3); Creatinine Clr Calc Pharmacy 116.9 ml/min; Potassium 4.4 mmol/L (3.5-5.1); Total Protein 5.3 gm/dl (6.0-8.3)
[2023-12-29] MEDS: DOCUSATE SODIUM 100 MG CAP PO SCH (22:21)
[2023-12-29] MEDS: CALCIUM GLUCONATE 1,000 MG/60 ML BAG IV STA (23:31)
[2023-12-29] MEDS: ONDANSETRON INJ 2 MG/ML 2 ML VIAL IV PRN (23:32)
--- NOTE | 2023-12-29 23:32 | Gynecologic Progress Note ---
Date of Service December 29, 2023 Assessment & Plan Admission and Anticipated Discharge Date Admission Date: December 29, 2023 Subjective Postop check Patient is seen and examined Feels better, pain is under control with meds No CP/ SOB/ Dizziness/ N&V/ VB/ Leg pain Not OOB yet Tolerating clears BP: 100/65, Pulse low 80's on monitor UOP: 275 ml in 2 hours 12/29/23 12/29/23 12/29/23 Range/Units 22:38 21:21 14:25 WBC 11.31 H (4.8-10.8) K/ul RBC 3.81 L (4.20-5.40) M/uL Hgb 10.3 L 11.5 L (12.0-16.0) g/dl Hct 31.4 L 35.1 L (37.0-47.0) % MCV 92.1 (80.0-100.0) fL MCH 30.2 (25.0-34.0) pg MCHC 32.8 (32.0-36.0) g/dL RDW Std Deviation 44.7 (36.4-46.3) fL RDW Coeff of Ray 13.5 (11.5-14.5) % Plt Count 459 H (130-400) K/uL MPV 10.1 (9.4-12.4) fL Immature Gran % (Auto) 0.3 % Neut % (Auto) 70.2 % Lymph % (Auto) 21.7 % [place] % (Auto) 5.5 % Eos % (Auto) 1.9 % Baso % (Auto) 0.4 % Neut # (Auto) 7.95 H (1.40-6.50) K/uL Lymph # (Auto) 2.45 (1.20-3.40) K/uL [place] # (Auto) 0.62 H (0.11-0.59) K/uL Eos # (Auto) 0.22 (0.00-0.50) K/uL Baso # (Auto) 0.04 (0.00-0.20) K/uL Immature Gran # (Auto) 0.03 (0.01-0.20) K/uL PT Pending Cancelled 10.3 (9.0-12.0) Seconds INR Pending Cancelled 0.9 (0.9-1.1) APTT Pending Cancelled PTT Ratio Pending Cancelled Fibrinogen Pending Cancelled Sodium 139 137 (136-145) mmol/L Potassium 4.4 3.9 (3.5-5.1) mmol/L Chloride 114 H 105 (98-107) mmol/L Carbon Dioxide 21 25 (21-32) mmol/L Anion Gap 4 7 (3-11) BUN 11 12 (6-23) mg/dl Creatinine 0.73 0.82 (0.6-1.2) mg/dl Est Cr Clr Drug Dosing 116.9 104.1 ml/min eGFR 111.29 96.80 BUN/Creatinine Ratio 15.1 14.6 (10-20) Glucose 119 H 93 (70-99(Fasting)) mg/dl Lactate 1.1 (0.4-2.0) mmol/L Calcium 6.9 L D 9.6 (8.6-10.3) mg/dl Ionized Calcium 1.01 L (1.12-1.32) mmol/L Total Bilirubin 0.3 0.3 (0.2-1.0) mg/dl Direct Bilirubin 0.1 (0-0.2) mg/dl AST 13 14 (13-39) U/L ALT 8 13 (7-52) U/L Alkaline Phosphatase 56 84 (34-104) U/L Total Protein 5.3 L D 8.0 (6.0-8.3) gm/dl Albumin 3.3 L 4.8 (3.4-5.0) gm/dl Globulin 3.2 (2.5-4.0) gm/dl Albumin/Globulin Ratio 1.5 (0.9-2) TSH 7.106 H (0.300-4.500) uIu/ml Free T4 0.63 (0.61-1.60) ng/dl Blood Type O Positive Antibody Screen NEGATIVE Crossmatch See Detail PE: General: Alert, orientedx3, NAD CVS: S1S2 RRR Lungs: CTAB Abd: soft, NT, ND, BS+, Incisions C/D/I No VB, pad dry Ext: NT, no edema, SCD's on AP: 33 yo female s/p vaginal and laparoscopic cuff repair, pod#0, s/p 2 units of PRBCC VSS Afebrile doing well H&H stable, coags pending Continue to monitor closely D/C lisseth in am Results & Data Vital Signs (Past 12 Hours) Vital Signs Temp Pulse Pulse Resp BP BP Pulse Ox 12/29/23 22:03 99 H 19 97/58 L 97 12/29/23 21:55 98/65 L 12/29/23 21:53 90 12/29/23 21:48 101 H 17 99 12/29/23 21:46 35.9 C L 103 H 25 H 98/65 L 100 12/29/23 20:35 36.3 C L 71 10 L 112/54 L 100 12/29/23 20:25 36.3 C L 75 16 112/54 L 100 12/29/23 20:15 36.3 C L 73 12 95/48 L 95 12/29/23 20:05 75 12 95/48 L 100 12/29/23 19:55 85 16 94/41 L 93 12/29/23 19:45 36.0 C L 82 16 108/69 98 12/29/23 17:27 36.6 C 84 14 115/68 100 12/29/23 17:09 36.6 C 77 19 117/74 100 12/29/23 17:05 36.6 C 83 18 112/65 100 12/29/23 17:00 91 H 16 102/63 12/29/23 16:51 36.6 C 87 18 114/65 100 12/29/23 16:21 127 H 17 98/65 L 98 12/29/23 16:12 106 H 22 114/82 99 12/29/23 16:09 108 H 21 87/69 L 100 12/29/23 16:05 121 H 12/29/23 15:51 122 H 23 112/77 12/29/23 15:45 106 H 17 112/77 12/29/23 15:18 118 H 24 109/74 100 12/29/23 15:13 87/60 L 12/29/23 14:57 106 H 17 99/69 L 98 12/29/23 14:31 98 H 16 123/77 97 12/29/23 14:12 36.3 C L 132 H 18 114/79 98 O2 Del Method O2 Flow Rate 12/29/23 22:03 12/29/23 21:55 12/29/23 21:53 12/29/23 21:48 12/29/23 21:46 Room Air 12/29/23 20:35 Oxymask 2 12/29/23 20:25 Oxymask 2 12/29/23 20:15 Oxymask 3 12/29/23 20:05 Oxymask 3 12/29/23 19:55 Oxymask 3 12/29/23 19:45 Oxymask 5 12/29/23 17:27 2 12/29/23 17:09 2 12/29/23 17:05 2 12/29/23 17:00 12/29/23 16:51 2 12/29/23 16:21 12/29/23 16:12 12/29/23 16:09 12/29/23 16:05 12/29/23 15:51 12/29/23 15:45 12/29/23 15:18 12/29/23 15:13 12/29/23 14:57 12/29/23 14:31 Room Air 12/29/23 14:12 Room Air
[2023-12-30 00:16] LABS: Fibrinogen 299 mg/dl (184-400); Partial Thromboplastin Ratio 0.9; Partial Thromboplastin Time 23 Seconds (21-31); Prothrombin Time 10.9 Seconds (9.0-12.0)
[2023-12-30] MEDS: ACETAMINOPHEN 325 MG TAB PO PRN (00:49)
[2023-12-30] MEDS: IBUPROFEN 600 MG TAB PO PRN (03:36)
[2023-12-30 06:25] LABS: Basophils # (auto) 0.03 K/uL (0.00-0.20); Basophils % (auto) 0.2 %; Eosinophils # (auto) 0.07 K/uL (0.00-0.50); Eosinophils % (auto) 0.4 %; Hematocrit (blood only) 25.1 % (37.0-47.0); Hemoglobin 8.5 g/dl (12.0-16.0); Immature Granulocytes # (auto) 0.07 K/uL (0.01-0.20); Immature Granulocytes % (auto) 0.4 %; Lymphocytes # (auto) 2.96 K/uL (1.20-3.40); Lymphocytes % (auto) 17.5 %; Mean Corpuscular Hemoglobin 30.1 pg (25.0-34.0); Mean Corpuscular Hgb Conc 33.9 g/dL (32.0-36.0); Mean Platelet Volume 9.9 fL (9.4-12.4); Monocytes # (auto) 0.98 K/uL (0.11-0.59); Monocytes % (auto) 5.8 %; Neutrophils % (auto) 75.7 %; Platelet Count 266 K/uL (130-400); RDW Coefficient of Variation 14.3 % (11.5-14.5); RDW Standard Deviation 46.2 fL (36.4-46.3); Red Blood Count 2.82 M/uL (4.20-5.40); White Blood Count 16.91 K/ul (4.8-10.8)
[2023-12-30 07:07] LABS: Magnesium 1.7 mg/dl (1.7-2.4); Phosphorus 3.7 mg/dl (2.5-4.9)
[2023-12-30 07:29] LABS: BUN Creatinine Ratio 13.2 (10-20); Calcium 7.5 mg/dl (8.6-10.3); Creatinine Clr Calc Pharmacy 125.5 ml/min; Potassium 4.1 mmol/L (3.5-5.1)
[2023-12-30] MEDS: ICU ELECTROLYTE REPLACEMENT PROTOCOL SCH (07:39)
[2023-12-30] MEDS: LEVOTHYROXINE SODIUM 25 MCG TABLET PO SCH (07:48)
--- NOTE | 2023-12-30 09:25 | Gynecologic Progress Note ---
Date of Service December 30, 2023 Assessment & Plan (1) Postoperative vaginal bleeding following genitourinary procedure: Plan: s/p Vaginal cuff repair vaginally and laparoscopically. Advance diet. Discontinue montanez catheter. Will send prescription for narcotics and antibiotics to Patient's home pharmacy. If pain controlled, vitals remain stable, H/H stable, and patient ambulating well, then will consider discharge this afternoon. Admission and Anticipated Discharge Date Admission Date: December 29, 2023 Subjective POD#1. Patient seen and examined. Patient reports pain controlled with pain medication. Patient had nausea overnight, but no vomiting. Patient feels her stomach rumbling but has not pass flatus. Montanez catheter in place. Denies fevers, chills, SOB or CP. No vaginal bleeding. 12/29/23 12/29/23 12/29/23 Range/Units 22:38 21:21 14:25 WBC 11.31 H (4.8-10.8) K/ul RBC 3.81 L (4.20-5.40) M/uL Hgb 10.3 L 11.5 L (12.0-16.0) g/dl Hct 31.4 L 35.1 L (37.0-47.0) % MCV 92.1 (80.0-100.0) fL MCH 30.2 (25.0-34.0) pg MCHC 32.8 (32.0-36.0) g/dL RDW Std Deviation 44.7 (36.4-46.3) fL RDW Coeff of Ray 13.5 (11.5-14.5) % Plt Count 459 H (130-400) K/uL MPV 10.1 (9.4-12.4) fL Immature Gran % (Auto) 0.3 % Neut % (Auto) 70.2 % Lymph % (Auto) 21.7 % [place] % (Auto) 5.5 % Eos % (Auto) 1.9 % Baso % (Auto) 0.4 % Neut # (Auto) 7.95 H (1.40-6.50) K/uL Lymph # (Auto) 2.45 (1.20-3.40) K/uL [place] # (Auto) 0.62 H (0.11-0.59) K/uL Eos # (Auto) 0.22 (0.00-0.50) K/uL Baso # (Auto) 0.04 (0.00-0.20) K/uL Immature Gran # (Auto) 0.03 (0.01-0.20) K/uL PT Pending Cancelled 10.3 (9.0-12.0) Seconds INR Pending Cancelled 0.9 (0.9-1.1) APTT Pending Cancelled PTT Ratio Pending Cancelled Fibrinogen Pending Cancelled Sodium 139 137 (136-145) mmol/L Potassium 4.4 3.9 (3.5-5.1) mmol/L Chloride 114 H 105 (98-107) mmol/L Carbon Dioxide 21 25 (21-32) mmol/L Anion Gap 4 7 (3-11) BUN 11 12 (6-23) mg/dl Creatinine 0.73 0.82 (0.6-1.2) mg/dl Est Cr Clr Drug Dosing 116.9 104.1 ml/min eGFR 111.29 96.80 BUN/Creatinine Ratio 15.1 14.6 (10-20) Glucose 119 H 93 (70-99(Fasting)) mg/dl Lactate 1.1 (0.4-2.0) mmol/L Calcium 6.9 L D 9.6 (8.6-10.3) mg/dl Ionized Calcium 1.01 L (1.12-1.32) mmol/L Total Bilirubin 0.3 0.3 (0.2-1.0) mg/dl Direct Bilirubin 0.1 (0-0.2) mg/dl AST 13 14 (13-39) U/L ALT 8 13 (7-52) U/L Alkaline Phosphatase 56 84 (34-104) U/L Total Protein 5.3 L D 8.0 (6.0-8.3) gm/dl Albumin 3.3 L 4.8 (3.4-5.0) gm/dl Globulin 3.2 (2.5-4.0) gm/dl Albumin/Globulin Ratio 1.5 (0.9-2) TSH 7.106 H (0.300-4.500) uIu/ml Free T4 0.63 (0.61-1.60) ng/dl Blood Type O Positive Antibody Screen NEGATIVE Crossmatch See Detail Review of Systems Respiratory: as per Subjective / HPI Cardiovascular: as per Subjective / HPI Gastrointestinal: as per Subjective / HPI Genitourinary: as per Subjective / HPI Physical Exam Constitutional: WD/WN, vitals as above Respiratory: normal respiratory effort, lungs clear to auscultation Cardiovascular: RRR, no murmur, no edema Gastrointestinal (Abdomen): Soft, tender to palpation in the lower pelvis. Hypoactive bowel sounds. Incisions: C/D/I. No erythema or edema. Results & Data Vital Signs (Past 12 Hours) Vital Signs Temp Pulse Pulse Resp BP BP Pulse Ox 12/30/23 08:05 36.7 C 12/30/23 08:00 119/68 12/30/23 08:00 80 12/30/23 07:48 93 H 23 99 12/30/23 07:23 117/76 12/30/23 07:15 85 14 96 12/30/23 06:00 104/59 L 12/30/23 05:57 101 H 10 L 96 12/30/23 05:00 81 17 111/75 100 12/30/23 04:09 81 22 110/64 96 12/30/23 03:57 88 17 96 12/30/23 03:21 83 15 97 12/30/23 03:00 121/77 12/30/23 02:51 81 16 97 12/30/23 02:03 97 H 21 118/62 96 12/30/23 02:00 118/62 12/30/23 01:57 37.1 C 12/30/23 01:48 82 13 98 12/30/23 01:15 83 21 115/68 100 12/30/23 00:57 95 H 17 99 12/30/23 00:12 86 8 L 111/67 97 12/30/23 00:00 89 12/29/23 23:57 75 15 97 12/29/23 23:00 90 12 110/67 12/29/23 22:41 102/59 L 12/29/23 22:39 80 25 H 100 12/29/23 22:03 99 H 19 97/58 L 97 12/29/23 21:55 98/65 L 12/29/23 21:53 90 12/29/23 21:48 101 H 17 99 12/29/23 21:46 35.9 C L 103 H 25 H 98/65 L 100 O2 Del Method 12/30/23 08:05 12/30/23 08:00 12/30/23 08:00 12/30/23 07:48 12/30/23 07:23 12/30/23 07:15 Room Air 12/30/23 06:00 12/30/23 05:57 12/30/23 05:00 12/30/23 04:09 12/30/23 03:57 12/30/23 03:21 12/30/23 03:00 12/30/23 02:51 12/30/23 02:03 12/30/23 02:00 12/30/23 01:57 12/30/23 01:48 12/30/23 01:15 12/30/23 00:57 12/30/23 00:12 12/30/23 00:00 12/29/23 23:57 12/29/23 23:00 12/29/23 22:41 12/29/23 22:39 12/29/23 22:03 12/29/23 21:55 12/29/23 21:53 12/29/23 21:48 12/29/23 21:46 Room Air
[2023-12-30] MEDS: AMOXICILLIN/CLAVULANATE 875 MG TAB PO SCH (10:51)
--- NOTE | 2023-12-30 12:18 | Gynecologic Progress Note ---
Date of Service December 30, 2023 Assessment & Plan Admission and Anticipated Discharge Date Admission Date: December 29, 2023 Subjective Patient is seen and examined She was sleeping and woke up Smith was taken out but has not got up to BR yet She sat up to eat and was fine, ate little bites, not hungry Feels sore No VB Feels gas coming but has not passed yet VSS Afebrile Abd: appropriately tender, incisions C/D/I NO VB Vital Signs Temp Pulse Resp BP Pulse Ox O2 Del Method 12/30/23 09:03 88 18 98 12/30/23 09:00 90/61 L 12/30/23 08:05 36.7 C 12/30/23 08:00 119/68 12/30/23 08:00 80 12/30/23 07:48 93 H 23 99 12/30/23 07:23 117/76 12/30/23 07:15 85 14 96 Room Air 12/30/23 06:00 104/59 L 12/30/23 05:57 101 H 10 L 96 12/30/23 05:00 81 17 111/75 100 12/30/23 04:09 81 22 110/64 96 12/30/23 03:57 88 17 96 12/30/23 03:21 83 15 97 12/30/23 03:00 121/77 12/30/23 02:51 81 16 97 12/30/23 02:03 97 H 21 118/62 96 12/30/23 02:00 118/62 12/30/23 01:57 37.1 C 12/30/23 01:48 82 13 98 12/30/23 01:15 83 21 115/68 100 12/30/23 00:57 95 H 17 99 12/30/23 12/30/23 12/29/23 Range/Units 11:59 06:02 22:38 WBC 16.91 H (4.8-10.8) K/ul RBC 2.82 L (4.20-5.40) M/uL Hgb Pending 8.5 L (12.0-16.0) g/dl Hct Pending 25.1 L (37.0-47.0) % MCV 89.0 (80.0-100.0) fL MCH 30.1 (25.0-34.0) pg MCHC 33.9 (32.0-36.0) g/dL RDW Std Deviation 46.2 (36.4-46.3) fL RDW Coeff of Ray 14.3 (11.5-14.5) % Plt Count 266 (130-400) K/uL MPV 9.9 (9.4-12.4) fL Immature Gran % (Auto) 0.4 % Neut % (Auto) 75.7 % Lymph % (Auto) 17.5 % [place] % (Auto) 5.8 % Eos % (Auto) 0.4 % Baso % (Auto) 0.2 % Neut # (Auto) 12.80 H (1.40-6.50) K/uL Lymph # (Auto) 2.96 (1.20-3.40) K/uL [place] # (Auto) 0.98 H (0.11-0.59) K/uL Eos # (Auto) 0.07 (0.00-0.50) K/uL Baso # (Auto) 0.03 (0.00-0.20) K/uL Immature Gran # (Auto) 0.07 (0.01-0.20) K/uL PT 10.9 (9.0-12.0) Seconds INR 1.0 (0.9-1.1) APTT 23 PTT Ratio 0.9 Fibrinogen 299 Sodium 139 (136-145) mmol/L Potassium 4.1 (3.5-5.1) mmol/L Chloride 113 H (98-107) mmol/L Carbon Dioxide 22 (21-32) mmol/L Anion Gap 4 (3-11) BUN 9 (6-23) mg/dl Creatinine 0.68 (0.6-1.2) mg/dl Est Cr Clr Drug Dosing 125.5 ml/min eGFR 117.86 BUN/Creatinine Ratio 13.2 (10-20) Glucose 105 H (70-99(Fasting)) mg/dl Lactate (0.4-2.0) mmol/L Calcium 7.5 L (8.6-10.3) mg/dl Ionized Calcium (1.12-1.32) mmol/L Phosphorus 3.7 (2.5-4.9) mg/dl Magnesium 1.7 (1.7-2.4) mg/dl Total Bilirubin (0.2-1.0) mg/dl Direct Bilirubin (0-0.2) mg/dl AST (13-39) U/L ALT (7-52) U/L Alkaline Phosphatase (34-104) U/L Total Protein (6.0-8.3) gm/dl Albumin (3.4-5.0) gm/dl Globulin (2.5-4.0) gm/dl Albumin/Globulin Ratio (0.9-2) TSH (0.300-4.500) uIu/ml Free T4 (0.61-1.60) ng/dl Blood Type Antibody Screen Crossmatch 12/29/23 12/29/23 Range/Units 21:21 14:25 WBC 11.31 H (4.8-10.8) K/ul RBC 3.81 L (4.20-5.40) M/uL Hgb 10.3 L 11.5 L (12.0-16.0) g/dl Hct 31.4 L 35.1 L (37.0-47.0) % MCV 92.1 (80.0-100.0) fL MCH 30.2 (25.0-34.0) pg MCHC 32.8 (32.0-36.0) g/dL RDW Std Deviation 44.7 (36.4-46.3) fL RDW Coeff of Ray 13.5 (11.5-14.5) % Plt Count 459 H (130-400) K/uL MPV 10.1 (9.4-12.4) fL Immature Gran % (Auto) 0.3 % Neut % (Auto) 70.2 % Lymph % (Auto) 21.7 % [place] % (Auto) 5.5 % Eos % (Auto) 1.9 % Baso % (Auto) 0.4 % Neut # (Auto) 7.95 H (1.40-6.50) K/uL Lymph # (Auto) 2.45 (1.20-3.40) K/uL [place] # (Auto) 0.62 H (0.11-0.59) K/uL Eos # (Auto) 0.22 (0.00-0.50) K/uL Baso # (Auto) 0.04 (0.00-0.20) K/uL Immature Gran # (Auto) 0.03 (0.01-0.20) K/uL PT Cancelled 10.3 (9.0-12.0) Seconds INR Cancelled 0.9 (0.9-1.1) APTT Cancelled PTT Ratio Cancelled Fibrinogen Cancelled Sodium 139 137 (136-145) mmol/L Potassium 4.4 3.9 (3.5-5.1) mmol/L Chloride 114 H 105 (98-107) mmol/L Carbon Dioxide 21 25 (21-32) mmol/L Anion Gap 4 7 (3-11) BUN 11 12 (6-23) mg/dl Creatinine 0.73 0.82 (0.6-1.2) mg/dl Est Cr Clr Drug Dosing 116.9 104.1 ml/min eGFR 111.29 96.80 BUN/Creatinine Ratio 15.1 14.6 (10-20) Glucose 119 H 93 (70-99(Fasting)) mg/dl Lactate 1.1 (0.4-2.0) mmol/L Calcium 6.9 L D 9.6 (8.6-10.3) mg/dl Ionized Calcium 1.01 L (1.12-1.32) mmol/L Phosphorus (2.5-4.9) mg/dl Magnesium (1.7-2.4) mg/dl Total Bilirubin 0.3 0.3 (0.2-1.0) mg/dl Direct Bilirubin 0.1 (0-0.2) mg/dl AST 13 14 (13-39) U/L ALT 8 13 (7-52) U/L Alkaline Phosphatase 56 84 (34-104) U/L Total Protein 5.3 L D 8.0 (6.0-8.3) gm/dl Albumin 3.3 L 4.8 (3.4-5.0) gm/dl Globulin 3.2 (2.5-4.0) gm/dl Albumin/Globulin Ratio 1.5 (0.9-2) TSH 7.106 H (0.300-4.500) uIu/ml Free T4 0.63 (0.61-1.60) ng/dl Blood Type O Positive Antibody Screen NEGATIVE Crossmatch See Detail Patient prefers to stay tonight Encouraged to ambulate and advance diet slowly All questions were answered Results & Data Vital Signs (Past 12 Hours) Vital Signs Temp Pulse Resp BP Pulse Ox O2 Del Method 12/30/23 09:03 88 18 98 12/30/23 09:00 90/61 L 12/30/23 08:05 36.7 C 12/30/23 08:00 119/68 12/30/23 08:00 80 12/30/23 07:48 93 H 23 99 12/30/23 07:23 117/76 12/30/23 07:15 85 14 96 Room Air 12/30/23 06:00 104/59 L 12/30/23 05:57 101 H 10 L 96 12/30/23 05:00 81 17 111/75 100 12/30/23 04:09 81 22 110/64 96 12/30/23 03:57 88 17 96 12/30/23 03:21 83 15 97 12/30/23 03:00 121/77 12/30/23 02:51 81 16 97 12/30/23 02:03 97 H 21 118/62 96 12/30/23 02:00 118/62 12/30/23 01:57 37.1 C 12/30/23 01:48 82 13 98 12/30/23 01:15 83 21 115/68 100 12/30/23 00:57 95 H 17 99
[2023-12-30 12:21] LABS: Hematocrit (blood only) 27.2 % (37.0-47.0); Hemoglobin 8.9 g/dl (12.0-16.0)
--- NOTE | 2023-12-30 12:47 | Critical Care Progress Note ---
Date of Service December 30, 2023 Assessment & Plan (1) Acute hemorrhage: Plan Reason Critically Ill: 33 YOF presents to ICU post OR vaginal examination under anesthesia for acute hemorrhage and found to have vaginal cuff bleed. She is currently hemodynamically stable without use of vasopressors or current infusions of blood products. ICU overnight for hemodynamic monitoring and continued resuscitation if needed. Neuro: Acute pain post procedure, history of migraines- CAM ICU: NEGATIVE - Pain control per primary surgical service Cardiac - Shock- hemorrhagic -Transient hemorrhagic shock is resolved with blood products. Respiratory - No acute needs - wean oxygen as able GI - No acute needs - Advance diet as tolerated RENAL/LYTES - No acute needs -No significant issues at present. - surgery per primary service- Smith continue until am- primary service to manage ENDO - Hypothyroidism hx - TSH 7 with adequate T4- continue Levothyroxine HEME - Acute blood loss/hemorrhagic shock -Status post 1 unit of packed RBCs for postoperative vaginal bleeding. ID - NO concern at this time for infective process - Pre and post surgical antibiotics for surgical site per primary service LINES/IV ACCESS - PIV, Smith Continue use of these lines DVT PROPHYLAXIS SCDS, Chemoprophylaxis per primary surgical service when they feel it is appropriate- DISPO: ICU services to sign off at this time. Care will be transitioned to [facility]. Thank you for the consult. Please call with questions. Admission and Anticipated Discharge Date Admission Date: December 29, 2023 Subjective Patient seen and examined. She continues to complain of some abdominal tenderness. Pain meds being managed by [facility] service. No signs of recurrent ble eding. Hemoglobin is stable. Vital signs remained stable as well and patient has not needed vasoactive medications. Review of Systems Review of Systems: All systems reviewed & are unremarkable except as noted in HPI & below Physical Exam Physical Exam: PHYSICAL EXAM: General: awake, alert, no apparent distress Head: Normocephalic, atraumatic ENT: PERRLA, EOMI, no pharyngeal exudate, mucous membranes dry Neuro: AAO x 3, speech clear and appropriate, strength intact bilaterally 5/5 Chest: equal rise and fall of the chest, no accessory muscle use, no heaves or thrills, Clear to auscultation, on 2LNC Cardiac: Regular rate and rhythm, telemetry reviewed- NSR no ectopy, skin warm dry, cap refill <3 seconds, peripheral pulses +2 no JVD, no murmur, no edema GI: NABS x 4 quadrants, soft, nontender to palpation, no rebound, guarding or tenderness : Pain suprapubic with palpation. Smith removed. Psych: Normal mood and affect Skin: bruise to right forearm from pervious IV or blood draw, no rash or erythema, SCDS on Results & Data Results & Data Vital Signs (Past 12 Hours) Vital Signs Temp Pulse Resp BP Pulse Ox O2 Del Method 12/30/23 09:03 88 18 98 12/30/23 09:00 90/61 L 12/30/23 08:05 36.7 C 12/30/23 08:00 119/68 12/30/23 08:00 80 12/30/23 07:48 93 H 23 99 12/30/23 07:23 117/76 12/30/23 07:15 85 14 96 Room Air 12/30/23 06:00 104/59 L 12/30/23 05:57 101 H 10 L 96 12/30/23 05:00 81 17 111/75 100 12/30/23 04:09 81 22 110/64 96 12/30/23 03:57 88 17 96 12/30/23 03:21 83 15 97 12/30/23 03:00 121/77 12/30/23 02:51 81 16 97 12/30/23 02:03 97 H 21 118/62 96 12/30/23 02:00 118/62 12/30/23 01:57 37.1 C 12/30/23 01:48 82 13 98 12/30/23 01:15 83 21 115/68 100 12/30/23 00:57 95 H 17 99 Coding Level of Care Code 75019 SUB INP/OBS CARE 03/29MIN Diagnoses Acute hemorrhage R58
[2023-12-30] MEDS: ceFAZolin 2000MG 2,000 MG/15 ML SYR IV ONE (13:21)
[2023-12-30] MEDS: SIMETHICONE 80 MG CHEW PO PRN (13:54)
[2023-12-30 15:07] LABS: iSTAT Creatinine 0.9 mg/dl (0.6-1.3); iSTAT Hemoglobin 10.9 g/dl (12.0-16.0); iSTAT Ionized Calcium 1.19 mmol/l (1.12-1.32); iSTAT Potassium 4.1 mmol/L (3.3-5.0)
[2023-12-30 15:07] LABS: iSTAT Creatinine 0.8 mg/dl (0.6-1.3); iSTAT Hemoglobin 5.1 g/dl (12.0-16.0); iSTAT Ionized Calcium 1.06 mmol/l (1.12-1.32); iSTAT Potassium 3.7 mmol/L (3.3-5.0)
[2023-12-30] MEDS: PROMETHAZINE 12.5 MG/50.5 ML BAG IV PRN (19:10)
[2023-12-31 00:07] VITALS: RESP 16
[2023-12-31 06:27] LABS: BUN Creatinine Ratio 13.9 (10-20); Calcium 7.8 mg/dl (8.6-10.3); Creatinine Clr Calc Pharmacy 118.6 ml/min; Magnesium 1.8 mg/dl (1.7-2.4); Potassium 3.9 mmol/L (3.5-5.1)
[2023-12-31 07:45] VITALS: O2SAT 96
--- NOTE | 2023-12-31 07:49 | Gynecologic Progress Note ---
Date of Service December 31, 2023 Assessment & Plan (1) Postoperative vaginal bleeding following genitourinary procedure: Plan: s/p Vaginal cuff repair vaginally and laparoscopically. Patient meeting discharge criteria. Prescription for narcotics (percocet) and antibiotics (flagyl/bactrim DS) to Patient's home pharmacy ([facility] in [place]). Patient to follow up at [facility] on 01/09/2024 at 1 pm. Admission and Anticipated Discharge Date Admission Date: December 29, 2023 Subjective POD#2. Patient seen and examined. Pain controlled with medications. +Flatus. Patient reports light spotting with wiping but very minimal. No bleeding noted on pad. Hemoglobin is stable. Vital signs stable. Denies N/V, fevers, chills, SOB or CP. Urinating without any difficulty. Review of Systems Constitutional: as per Subjective / HPI Respiratory: as per Subjective / HPI Cardiovascular: as per Subjective / HPI Gastrointestinal: as per Subjective / HPI Genitourinary: as per Subjective / HPI Physical Exam Constitutional: WD/WN, vitals as above Respiratory: normal respiratory effort, lungs clear to auscultation Cardiovascular: RRR, no murmur, no edema Gastrointestinal (Abdomen): Soft, appropriately tender to palpation. +BS. Incisions: C/D/I. No erythema or edema. Results & Data Vital Signs (Past 12 Hours) Vital Signs Temp Pulse Resp BP Pulse Ox O2 Del Method 12/31/23 02:49 36.8 C 100 H 16 103/61 99 Room Air 12/31/23 00:07 37.2 C 75 16 103/60 95 Room Air
--- NOTE | 2023-12-31 08:00 | Discharge Summary ---
Date of Service December 31, 2023 Admission HPI Per Admitting Provider Patient is a 33 yo who is status post laparoscopic hysterectomy [address] Stiles. She developed some vaginal bleeding last weekend and was seen and admitted by myself after packing vagina with Monsel. Patient soaked vaginal packing. She was here for over 24 hours and did not bleed. Patient was discharged by Dr Le next day. Packing was removed and it was dry. The bleeding seemed to have subsided until 12/27/23 when she began to have bleeding again and went back to the [facility] office and had more Monsel placed by Dr Le and was scheduled to follow-up on Sunday (01/01/24) however today (12/29/2023) she began to suddenly bleed heavily again, with passage of golf ball sized clots. She does have a sense of abdominal pressure and fatigue. She denies chest pain or shortness of breath, fevers or chills, nausea or vomiting. By time of arrival here, patient felt as though she was passing a large clot again. She was noted to be tachycardic and hypotensive was started on IVF. She felt better until I (Dr. Fields) came started to have more VB, soaked five chucks in an hour or less. She felt dizzy and was passing out and could not perform a pelvic exam. Decision was made to proceed to OR quickly. IVF, blood transfusion started. Admission Exam (Per Admitting) Constitutional WD/WN, vitals as above Respiratory normal respiratory effort, lungs clear to auscultation Cardiovascular RRR, no murmur, no edema Discharge Data Consultations 12/29/23 20:03 Consult Wafer Fab Operator Stat Procedures Performed Operation Date: 12/29/23 16:40 Actual Procedures s Exam under anesthesia, Laparoscopy, (Not Applicable) - Adalid Lopez MD p Closure of dehiscenced vaginal cuff(Not Applicable) - Adalid Lopez MD Hospital Course (1) Postoperative vaginal bleeding following genitourinary procedure: s/p Vaginal cuff repair vaginally and laparoscopically. Patient meeting discharge criteria. Prescription for narcotics (percocet) and antibiotics (flagyl/bactrim DS) to Patient's home pharmacy ([facility] in [place]). Patient to follow up at [facility] on 01/09/2024 at 1 pm. Discharge Instructions POST OPERATIVE: BOWEL FUNCTION/MEDICATIONS: 1. Constipation pain and discomfort are the most common complaints 5-7 days after surgery. Points 2-6 address the things that can help. 2. Chewing gum can help stimulate the gut and help improve digestion and motility. 3. Milk of Magnesia 1-2 times per day until return of bowel function. 4. Colace/Miralax is a stool softener that helps. Taking this 2-3 times per day until bowel function returns to normal is highly recommended. 5. Dulcolax is a laxative that may be used if several days have passed without a bowel movement. Alternatively Miralax may be used daily instead. 6. Drink plenty of fluids as this will also reduce constipation. 7. Narcotic pain medications will be prescribed by your physician. They are safe to use and we encourage you to use them. If you are not allergic, ibuprofen will also be prescribed. Many patients will be able to transition off of the narcotic medications to ibuprofen by postoperative day 3. ACTIVITY RECOMMENDATIONS: 1. Get plenty of rest and listen to your body. If you are tired, take a nap. 2. You may shower, but do not take a tub bath until you see your doctor at the 2 week post operative visit. 3. Absolutely NO intercourse and nothing in the vagina until you are examined by your doctor at the 8 week visit. At that visit it will be determined wh en such activities can be resumed. This can range from 6-12 weeks after your surgery depending on healing time. 4. The main physical activity in the first week should be walking. By the second week you can slowly increase activity. There are no limits on walking up and down stairs. 5. Do not lift more than 5-10 lbs for 4 weeks. Remember the "one-handed rule", i.e. if you can lift something with only one hand it's likely okay. 6. Minimize anthropology professor like vacuuming and exercising for 4 weeks. "Overdoing it" can lead to incisions not healing, pain and vaginal bleeding, so again, listen to your body. 7. Driving can be resumed when you feel able. Do not drive within 24 hours of taking a narcotic medication. 8. You may return to previous diet. EXPECTATIONS: 1. Vaginal spotting, bleeding and discharge are common after surgery. There may even be an odor to the discharge which is often related to sutures used in the vagina. If you experience heavy vaginal bleeding, call the office number day or night [phone]. 2. Bladder discomfort is common after surgery from the catheter. This usually resolves in 1-2 weeks. 3. By the end of the 3rd or 4th week you should be feeling much better. It may take up to 6 weeks for your energy levels to return to normal. 4. Narcotic medications have side effects such as: dizziness, headache, nausea and/or vomiting. If you suspect your pain medication is causing problems, call our office and we may be able to prescribe an alternate medication. 5. The skin incisions are often covered with a liquid bandage. This will gradually peel off over time. CALL THE OFFICE IF YOU HAVE ANY OF THE FOLLOWIN. Temperature of 101 degrees or higher. 2. Severe abdominal or pelvic pain not relieved by pain medication. 3. Persistent nausea or vomiting. 4. Increased pain with urination or difficulty urinating. 5. Bright red bleeding that soaks more than 1 pad per hour. CONTACT PHONE NUMBERS: Main Office: [phone] Avoid all tobacco products. If you need help to stop smoking, call [place]'s FREE QUITLINE at . This is a free call.
[2023-12-31 10:15] LABS: Basophils # (auto) 0.03 K/uL (0.00-0.20); Basophils % (auto) 0.3 %; Eosinophils # (auto) 0.46 K/uL (0.00-0.50); Hematocrit (blood only) 23.6 % (37.0-47.0); Hemoglobin 7.7 g/dl (12.0-16.0); Immature Granulocytes # (auto) 0.02 K/uL (0.01-0.20); Immature Granulocytes % (auto) 0.2 %; Lymphocytes # (auto) 2.08 K/uL (1.20-3.40); Lymphocytes % (auto) 22.5 %; Mean Corpuscular Hemoglobin 30.2 pg (25.0-34.0); Mean Corpuscular Hgb Conc 32.6 g/dL (32.0-36.0); Mean Corpuscular Volume 92.5 fL (80.0-100.0); Mean Platelet Volume 10.3 fL (9.4-12.4); Monocytes # (auto) 0.56 K/uL (0.11-0.59); Monocytes % (auto) 6.1 %; Neutrophils % (auto) 65.9 %; Platelet Count 246 K/uL (130-400); RDW Coefficient of Variation 14.3 % (11.5-14.5); RDW Standard Deviation 48.2 fL (36.4-46.3); Red Blood Count 2.55 M/uL (4.20-5.40); White Blood Count 9.25 K/ul (4.8-10.8)
[2023-12-31 11:13] VITALS: BP 123/70; PULSE 89; TEMP 98.6
[2023-12-31 11:21] LABS: Polychromasia 1+
--- NOTE | 2024-01-01 16:26 | Coding Query ---
ANEMIA To promote full compliance with coding requirements relating to patient care, physician participation is requested in all cases of package dyer uncertainty. Please assist us with the question(s) below: ED NOTE-s/p TLH, BL salpingectomy on 11/29, presenting with active hemorrhage, quick drop in HB, Blood being transfused POC hgb-5.1 12/29 pn-HEME - Acute blood loss/hemorrhagic shock -Status post 1 unit of packed RBCs for postoperative vaginal bleeding If these findings are indicative of anemia, please specify the known or suspected type by placing an "X" within the parenthesis (x). If other, please document type. Examples are: (x) Acute blood loss anemia ( ) Acute Postoperative blood loss anemia ( ) Acute postoperative anemia due to dilutional fluids ( ) Chronic blood loss anemia ( ) Anemia of chronic disease ( ) Aplastic anemia ( ) Anemia due to renal disease ( ) Anemia in neoplastic disease ( ) Iron deficient anemia ( ) Anemia, unspecified or other ( ) Other: (please specify) Thank you Chelsy OLMSTEAD
== END 2023-12-31 13:15 | disposition home health service (06) | DRG 907 ==
LOC: ED 14:02 → OR 17:29 → 1E 19:44 → 4E1 12-30 12:56